=== PATIENT | male | born 1980 | race Caucasian/White ===

== ENCOUNTER 2018-08-24 10:51 | Observation (INO) | payer OTHER, SELFPAY ==
[2018-08-24] VITALS (17 sets, daily range): BP systolic 61–147; BP diastolic 34–78; PULSE 92–109; RESP 16–26; TEMP 35.9–37.5; O2SAT 92–100; BMI 42.5; BMI 41.4
--- NOTE | 2018-08-24 | GALL_PTH ---
PATIENT: MINI VIVAR LOC: MS3 U#:[id number] AGE/SX: 38/M ROOM: OR318 RE08/24/[address]: Dr. Georges Renner MD : 1980 BED: 1 DIS: 08/26/2018 SPEC #: [id number] RECD: 08/25/18 07:45 STATUS: SUSANA REQ #: [id number] DAPHNE: 08/24/18 00:[address]: Chacoh Calles DEPT: SURGICAL PATHOLOGY RECD BY: Shayan Jones ENTERED: 08/25/18 10:11 SP TYPE: GALLBLADDE OTHR DR: MD Dr. Reji Brown DO Dr. Nicholas F Kotsonis, MD No Primary Care Phys Tissues: Gallbladder, NOS Procedures: Surgery Specimen Level III Comments: @ Ordering doctor for SUIII edited from to @ ryan MUSTAFA at 08/25/18 1533 @ Submitting doctor edited from to @ by RGOOD at 08/25/18 1533 HEADER OPERATION: Laparoscopic cholecystectomy with IOC PRE-OP DIAGNOSIS: Acute cholecystitis TISSUE SUBMITTED: Gallbladder and contents MICROSCOPIC DIAGNOSIS Gallbladder and contents: Chronic cholecystitis and cholelithiasis. OXANA:asael 08/26/18 MICROSCOPIC DESCRIPTION Slides are reviewed. GROSS DESCRIPTION Received is one container labeled with the patient's name and designated gallbladder and contents. The specimen consists of a gallbladder measuring 11 cm in length and up to 2 cm in diameter. The external surface is pink-isbell, smooth and glistening for the most part. Focally it is granular, hemorrhagic and contains cautery artifact. The gallbladder contains green-yellow mucoid bile and one irregular black stone measuring 0.7 x 0.5 x 0.5 cm. The mucosa is bile-stained and without any mass lesions. The gallbladder wall measures up to 0.3 cm in thickness. Night Shift Supervisor sections from the gallbladder and the cystic duct are submitted in one cassette. / OXANA:asael TC:3 CPT: 63065
--- NOTE | 2018-08-24 11:00 | EKG12_ITS ---
Test Reason : Blood Pressure : / mmHG Vent. Rate : 105 BPM Atrial Rate : 105 BPM P-R Int : 132 ms QRS Dur : 082 ms QT Int : 328 ms P-R-T Axes : 032 033 026 degrees QTc Int : 433 ms Sinus tachycardia Poor R wave progression Abnormal ECG Confirmed by BLUE ROMERO, YENI ([id number]), order editor LINDA LYNCH ([id number]) on 08/26/2018 11:18:16 AM Referred By: Chacho Calles Confirmed By:YENI MCARTHUR MD
--- NOTE | 2018-08-24 11:00 | CT_ITS ---
STUDY: CT ABDOMEN AND PELVIS WITH CONTRAST REASON FOR EXAM: Male, 38 years old. Sudden onset right-sided pain RADIATION DOSAGE (If Supplied By Facility): CTDIvol = ( 26.34 ) mGy, DLP = ( 1464.25 ) mGycm TECHNIQUE: Transaxial images were obtained from the dome of the diaphragm to the symphysis pubis without oral contrast. 100 ml of Isovue 300 contrast was administered. Sagittal and coronal images were reconstructed. Individualized dose optimization techniques were used for this CT. COMPARISON: None. FINDINGS: The visualized lung bases are unremarkable. The visualized portions of the heart are within normal limits. There is decreased attenuation of the liver consistent with steatosis. There is a small gallstone near the neck of the gallbladder on axial image 74. Normal spleen. Normal pancreas. Normal bilateral adrenal glands. Normal right kidney. Normal left kidney. Normal visualized stomach. Normal small intestine. Normal colon. The appendix is visualized and appears normal. Appendix best seen on coronal recon image 78. Normal abdominal aorta. Normal inferior vena cava. Normal retroperitoneum. Normal urinary bladder. Normal abdominal wall. Normal osseous structures. CT/Abdomen/Pelvis W IV Cont ONLY IMPRESSION: Fatty infiltration of the liver, no discrete lesion 5 mm gallstone near the neck of the gallbladder without gallbladder wall thickening or pericholecystic inflammation No CT evidence of an acute inflammatory process, normal appendix visualized Electronically Signed: Ryan Espinosa MD at 12:20 EST , Service support ,
--- NOTE | 2018-08-24 11:01 | RAD_ITS ---
STUDY: X-RAY CHEST REASON FOR EXAM: Male, 38 years old. Nausea, right-sided abdominal pain TECHNIQUE: Single AP portable view of the chest. COMPARISON: None. FINDINGS: The lungs are clear and expanded. There is no demonstrated pleural abnormality. Normal size heart. Normal mediastinum and fely. Normal visualized pulmonary arteries. Normal visualized aortic arch and descending thoracic aorta. Normal visualized thoracic spine. Normal visualized ribs, clavicles, and shoulders. There is no demonstrated abnormality of the visualized soft tissue structures of the upper abdomen. RAD/Chest 1 View (Portable) IMPRESSION: Normal x-ray examination of the chest. Electronically Signed: Ryan Espinosa MD at 12:38 EST , Service support ,
--- NOTE | 2018-08-24 11:05 | ED.RN ---
PT YELLED OUT IN PAIN. TURNED REDISH BLUE AND UNRESPONSIV FOR APPX [address] HENSLEY AT BEDSIDE. PT BECAME RESPONSIVE AND SHOUTING IN PAIN. BREATHING STABLIZED INDEPENDENTLY. NO FURTHER IMMENENT INTERVENTION AT THIS LENY PER DR HENSLEY.
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
--- NOTE | 2018-08-24 11:15 | ED.RN ---
EMESIS IN CT SCAN. APPX 500CC OR GREATER. PINK FLUID. HAD VERGARA GRAPE JUICE THIS AM. PT REPORTS FELS SME BETTER AFTER EMESIS BUT STILL IN SEVERE PAIN.BP RECYCLED AND DR HENSLEY AWARE
[2018-08-24 11:23] LABS: Absolute Lymphocyte Count 0.78 X10^3/ul (0.83-4.51); Absolute Neutrophil Count 4.7 X10^3/uL (2.0-7.7); Basophil# 0.03 X10^3/uL; Basophil% 0.5 % (0-1); Eosinophil# 0.13 X10^3/uL; Eosinophils% 2.1 % (0-5); Hematocrit 45.4 % (40-54); Hemoglobin 15.8 g/dl (13.0-16.5); Lymphocyte # 0.78 X10^3/ul (4.0); Lymphocyte % 12.9 % (19-41); Mean Corp Hgb Conc 34.8 g/gl (32-36); Mean Corpuscular Hgb 32.1 pg (27.0-32.0); Mean Corpuscular Volume 92.3 fL (80-94); Mean Platelet Vol. 10.2 fl (6.2-12.0); Monocyte# 0.41 X10^3/uL; Monocyte% 6.8 % (0-10); Neutrophil # 4.71 X10^3/uL (2.7-7.7); Neutrophil % 77.5 % (47-70); Platelet Count 203 K/mm3 (150-450); Red Blood Count 4.92 M/mm3 (4.6-6.2); White Blood Count 6.1 K/mm3 (4.4-11.0)
[2018-08-24] MEDS: 0.9% Normal Saline 1,000 ML 1000 ML IV (11:23)
[2018-08-24] MEDS: Ondansetron 4 MG/2 ML Vial IV ×2 (11:24→11:46)
[2018-08-24 11:27] LABS: POSITIVE COUNT NO; POSITIVE DIFFERENTIAL NO; POSITIVE MORPHOLOGY NO
[2018-08-24] MEDS: Morphine 4 MG/ML Syringe IV (11:36)
[2018-08-24] MEDS: Ketorolac 30 MG/ML Syringe IV (11:37)
[2018-08-24 12:22] LABS: AST(SGOT) 43 U/L (15-37); Alanine Aminotransfer ALT/SGPT 74 U/L (16-61); Albumin, Serum 3.8 g/dL (3.2-5.0); Alkaline Phosphatase 46 U/L (45-117); Amylase 33 U/L (25-115); Anion Gap 11 (5-15); BUN 14 mg/dL (7-18); BUN/Creat Ratio 8.9 RATIO (10-20); Bilirubin, Direct 0.12 mg/dL (0.00-0.30); Calcium,Total 7.9 mg/dL (8.5-10.1); Chloride 97 mmol/L (98-107); Creatinine, Serum 1.57 mg/dL (0.70-1.30); EST Glomerular Filtration Rate 53 mL/min (>60); Est Glom Filt Rate - Afr Amer 65 mL/min (>60); Estimated Creatinine Clearance 69.28 ml/min; Globulin 3.5 g/dL (2.2-4.2); Glucose 223 mg/dL (74-106); Lipase 228 U/L (73-393); Potassium 4.1 mmol/L (3.5-5.1); Protein, Total 7.3 g/dL (6.4-8.2); Sodium Level 136 mmol/L (136-145)
[2018-08-24 12:26] LABS: Lactic Acid 2.2 mmol/L (0.4-2.0)
--- NOTE | 2018-08-24 12:27 | ED.RN ---
LACTIC ACID 2.2 CALLED [address] THE LAB. DR HENSLEY AWARE
--- NOTE | 2018-08-24 12:30 | US_ITS ---
STUDY: ABDOMINAL ULTRASOUND - RIGHT UPPER QUADRANT REASON FOR VISIT: Male, 38 years old. Right upper quadrant pain, fever TECHNIQUE: Ultrasound evaluation of the right upper quadrant was performed with real-time and static donovan-scale imaging. TECHNICAL QUALITY: Limited. Examination limited due to a combination of factors including obesity and bowel gas, and patient condition. COMPARISON: None. FINDINGS: Liver: The liver measures 20.6 cm. There is increased echogenicity consistent with fatty infiltration. The bile ducts are within normal limits. There is hepatic color flow. The direction of portal flow is hepatopetal. There is no demonstrated mass lesion. Gallbladder: There is a distended gallbladder at 14.9 cm. The gallbladder wall measures 4.6 mm. There is a positive sonographic Mckinney's sign. There is pericholecystic fluid. There are no gallstones. Common Bile Duct (C.B.D.): The common bile duct measures 8.0 mm. Pancreas: There is nonvisualization of the pancreas. Right Kidney: Normal size of the right kidney. The right kidney measures 12 x 6.7 x 5.4 cm. Normal renal cortex. The right cortex measures 1.8 cm. There is no demonstrated renal mass or cyst. There is no right hydronephrosis. US/Gallbladder IMPRESSION: The gallbladder is distended with wall thickening, pericholecystic fluid and positive Mckinney sign. A stone noted on CT earlier today not seen on this study but other findings are all consistent with cholecystitis. Surgical consultation recommended Hepatomegaly with diffuse fatty infiltration, no discrete lesion. Electronically Signed: Ryan Espinosa MD at 14:14 EST , Service support ,
--- NOTE | 2018-08-24 12:30 | EKG12_ITS ---
Test Reason : Blood Pressure : / mmHG Vent. Rate : 103 BPM Atrial Rate : 103 BPM P-R Int : 128 ms QRS Dur : 080 ms QT Int : 334 ms P-R-T Axes : 037 026 014 degrees QTc Int : 437 ms Sinus tachycardia Otherwise normal ECG Confirmed by JORGE ROMERO, CHARLEEN ([id number]), editor dictionary LINDA LYNCH ([id number]) on 08/30/2018 9:45:49 AM Referred By: Chacho Calles Confirmed By:CHARLEEN PATEL MD
--- NOTE | 2018-08-24 12:42 | PCA ---
NO OLD EKG
[2018-08-24] MEDS: 0.9% Normal Saline 1,000 ML 500 ML IV (13:24)
[2018-08-24] MEDS: fentaNYL 100 MCG/2 ML Ampul 25 MCG IV (13:54)
--- NOTE | 2018-08-24 14:15 | ED.RN ---
PT WAS TRANSFERRED VIA BED TO A.C. AT 1405.
[2018-08-24 14:45] LABS: Bedside Glucose 203 mg/dL (70-110)
--- NOTE | 2018-08-24 14:57 | PCM.HP.STD ---
Problem List (1) Acute cholecystitis Status: Acute History of Present Illness Date of Admission: 08/24/18 Chief Complaint: Right upper quadrant pain The patient is a 38 year old M who is complaining of severe right upper quadrant pain. The patient says the pain started yesterday evening. He says that he went to work this morning and was still having a lot of pain and tried to vomit from his nausea but then he felt a pop in his right upper quadrant and has been severely hurting ever since. He also vomited in CAT scan. He is not having fevers or chills but he has been hypotensive in the emergency room. He has not urinated since coming to the emergency room. Past Medical History Allergies No Known Allergies Allergy (Verified 08/24/18 11:00) Home Medications: Ambulatory Orders Medication Instructions Recorded Betamethasone Dipropionate 1 applic TP DAILY 08/24/18 Fenofibrate 160 mg PO DAILY 08/24/18 Ibuprofen 800 mg PO PRN PRN 08/24/18 Levothyroxine Sodium [Synthroid] 200 mcg PO DAILY 08/24/18 Liothyronine Sodium 50 mcg PO DAILY 08/24/18 Lisinopril 5 mg PO DAILY 08/24/18 Metformin HCl 1,000 mg PO DAILY 08/24/18 Testosterone Cypionate 1 ml IM TH 08/24/18 Surgical History: no surgical history Smoking Status: Never smoker - *Family History Paternal History Items: Unknown Maternal History Items: No pertinent history Review of Systems Constitutional: Reports: Anorexia HEENT: Denies: Difficulty Swallowing Cardiovascular: Denies: Chest Pain Respiratory: Denies: Cough, Shortness of Breath Gastrointestinal: Reports: Abdominal Pain - Severe right upper quadrant pain, Nausea, Vomiting Genitourinary: Denies: Dysuria Musculoskeletal: Denies: Joint Tenderness Skin: Denies: Dryness, Jaundice Neurological: Denies: Headaches Psychiatric: Denies: Anxiety, Depression Hematologic/ Lymphatic: Denies: Adenopathy VTE Information - Inpt Only VTE Present on Admission: No VTE Mechan Device Prophylaxis: SCD's Patient Problems: Active and Suspected Problems Acute cholecystitis (Acute) - Physical Exam General: Alert, Oriented x3, Cooperative HEENT: Atraumatic, PERRLA, EOMI Neck: Supple Lungs: Normal air movement Cardiovascular: Regular Rhythm, Tachycardic Abdomen: Soft, Non-Distended, Tender Extremities: No clubbing Skin: No rashes Musculoskeletal: No Muscle Wasting Neurological: Cranial nerves II-XII grossly intact Psych/Mental Status: Normal Affect Vital Signs Temp Pulse Resp BP Pulse Ox 98.8 F 100 18 95/58 L 98 08/24/18 14:16 08/24/18 14:16 08/24/18 14:16 08/24/18 14:16 08/24/18 14:16 Oxygen Flow Rate (L/min) 2 Oxygen Delivery Method Nasal Cannula Weight: 297 lb Body Mass Index (BMI) 41.4 Laboratory Tests Past 24 Hrs 08/24/18 08/24/18 08/24/18 11:12 11:12 11:24 WBC 6.1 RBC 4.92 Hgb 15.8 Hct 45.4 MCV 92.3 MCH 32.1 H MCHC 34.8 RDW 14.0 RDW Differential 46.0 H Plt Count 203 MPV 10.2 Immature Gran % (Auto) 0.200 Neut % (Auto) 77.5 H Lymph % (Auto) 12.9 L Zapata % (Auto) 6.8 Eos % (Auto) 2.1 Baso % (Auto) 0.5 Absolute Neuts (auto) 4.7 Absolute Lymphs (auto) 0.78 L Total Counted Not Reportable Sodium 136 Potassium 4.1 Chloride 97 L Carbon Dioxide 28.0 Anion Gap 11 BUN 14 Creatinine 1.57 H Estim Creat Clear Calc 69.28 Est GFR (MDRD) Af Amer 65 Est GFR (MDRD) Non-Af 53 L BUN/Creatinine Ratio 8.9 L Glucose 223 H Lactic Acid 2.2 H Calcium 7.9 L Total Bilirubin 0.90 Direct Bilirubin 0.12 AST 43 H ALT 74 H Alkaline Phosphatase 46 Troponin I < 0.015 Total Protein 7.3 Albumin 3.8 Globulin 3.5 Amylase 33 Lipase 228 POC Glucose 08/24/18 14:32 POC Glucose 203 H Clinical Impression(s) from Imaging Studies Abdomen/Pelvis CT 08/24/18 11:00 IMPRESSION: Fatty infiltration of the liver, no discrete lesion 5 mm gallstone near the neck of the gallbladder without gallbladder wall thickening or pericholecystic inflammation No CT evidence of an acute inflammatory process, normal appendix visualized Electronically Signed: Ryan Espinosa MD at 12:20 EST , Service support , Chest X-Ray 08/24/18 11:01 IMPRESSION: Normal x-ray examination of the chest. Electronically Signed: Ryan Espinosa MD at 12:38 EST , Service support , Gallbladder Ultrasound 08/24/18 12:30 IMPRESSION: The gallbladder is distended with wall thickening, pericholecystic fluid and positive Mckinney sign. A stone noted on CT earlier today not seen on this study but other findings are all consistent with cholecystitis. Surgical consultation recommended Hepatomegaly with diffuse fatty infiltration, no discrete lesion. Electronically Signed: Ryan Espinosa MD at 14:14 EST , Service support , Assessment/Plan All Active Problems Acute cholecystitis (Acute) 38-year-old male with acute cholecystitis 1. The patient has been hypotensive in the emergency room. His white count is normal. He complains of severe right upper quadrant pain. He has a positive Mckinney sign. On CT scan he has a large stone in the neck of the gallbladder. On ultrasound he has thickening of gallbladder with pericholecystic fluid. These are all consistent with acute cholecystitis. 2. I have asked the emergency room to run his fluids wide open and start Zosyn. 3. I discussed the procedure in detail with the patient. I discussed the risks, benefits, and alternatives of the procedure. I discussed the risks including but not limited to bleeding, infection, injury to surrounding organs such as the liver, bile duct, bowels. I did discuss the possibility of having to convert to an open procedure as well as the possibility that if any injuries occurred this may necessitate further surgery at a tertiary care center. Patient agrees to proceeding with surgery today. Chacho Calles MD Pager: [facility] [address] [place] [address], [address] [place] [address] Office:
--- NOTE | 2018-08-24 15:02 | HP.PCM_ITS ---
Problem List (1) Acute cholecystitis Status: Acute History of Present Illness Date of Admission: 08/24/18 Chief Complaint: Right upper quadrant pain The patient is a 38 year old M who is complaining of severe right upper quadrant pain. The patient says the pain started yesterday evening. He says that he went to work this morning and was still having a lot of pain and tried to vomit from his nausea but then he felt a pop in his right upper quadrant and has been severely hurting ever since. He also vomited in CAT scan. He is not having fevers or chills but he has been hypotensive in the emergency room. He has not urinated since coming to the emergency room. Past Medical History Allergies No Known Allergies Allergy (Verified 08/24/18 11:00) Home Medications: Ambulatory Orders Medication Instructions Recorded Betamethasone Dipropionate 1 applic TP DAILY 08/24/18 Fenofibrate 160 mg PO DAILY 08/24/18 Ibuprofen 800 mg PO PRN PRN 08/24/18 Levothyroxine Sodium [Synthroid] 200 mcg PO DAILY 08/24/18 Liothyronine Sodium 50 mcg PO DAILY 08/24/18 Lisinopril 5 mg PO DAILY 08/24/18 Metformin HCl 1,000 mg PO DAILY 08/24/18 Testosterone Cypionate 1 ml IM TH 08/24/18 Surgical History: no surgical history Smoking Status: Never smoker - *Family History Paternal History Items: Unknown Maternal History Items: No pertinent history Review of Systems Constitutional: Reports: Anorexia HEENT: Denies: Difficulty Swallowing Cardiovascular: Denies: Chest Pain Respiratory: Denies: Cough, Shortness of Breath Gastrointestinal: Reports: Abdominal Pain - Severe right upper quadrant pain, Nausea, Vomiting Genitourinary: Denies: Dysuria Musculoskeletal: Denies: Joint Tenderness Skin: Denies: Dryness, Jaundice Neurological: Denies: Headaches Psychiatric: Denies: Anxiety, Depression Hematologic/ Lymphatic: Denies: Adenopathy VTE Information - Inpt Only VTE Present on Admission: No VTE Mechan Device Prophylaxis: SCD's Patient Problems: Active and Suspected Problems Acute cholecystitis (Acute) - Physical Exam General: Alert, Oriented x3, Cooperative HEENT: Atraumatic, PERRLA, EOMI Neck: Supple Lungs: Normal air movement Cardiovascular: Regular Rhythm, Tachycardic Abdomen: Soft, Non-Distended, Tender Extremities: No clubbing Skin: No rashes Musculoskeletal: No Muscle Wasting Neurological: Cranial nerves II-XII grossly intact Psych/Mental Status: Normal Affect Vital Signs Temp Pulse Resp BP Pulse Ox 98.8 F 100 18 95/58 L 98 08/24/18 14:16 08/24/18 14:16 08/24/18 14:16 08/24/18 14:16 08/24/18 14:16 Oxygen Flow Rate (L/min) 2 Oxygen Delivery Method Nasal Cannula Weight: 297 lb Body Mass Index (BMI) 41.4 Laboratory Tests Past 24 Hrs 08/24/18 08/24/18 08/24/18 11:12 11:12 11:24 WBC 6.1 RBC 4.92 Hgb 15.8 Hct 45.4 MCV 92.3 MCH 32.1 H MCHC 34.8 RDW 14.0 RDW Differential 46.0 H Plt Count 203 MPV 10.2 Immature Gran % (Auto) 0.200 Neut % (Auto) 77.5 H Lymph % (Auto) 12.9 L Ross % (Auto) 6.8 Eos % (Auto) 2.1 Baso % (Auto) 0.5 Absolute Neuts (auto) 4.7 Absolute Lymphs (auto) 0.78 L Total Counted Not Reportable Sodium 136 Potassium 4.1 Chloride 97 L Carbon Dioxide 28.0 Anion Gap 11 BUN 14 Creatinine 1.57 H Estim Creat Clear Calc 69.28 Est GFR (MDRD) Af Amer 65 Est GFR (MDRD) Non-Af 53 L BUN/Creatinine Ratio 8.9 L Glucose 223 H Lactic Acid 2.2 H Calcium 7.9 L Total Bilirubin 0.90 Direct Bilirubin 0.12 AST 43 H ALT 74 H Alkaline Phosphatase 46 Troponin I < 0.015 Total Protein 7.3 Albumin 3.8 Globulin 3.5 Amylase 33 Lipase 228 POC Glucose 08/24/18 14:32 POC Glucose 203 H Clinical Impression(s) from Imaging Studies Abdomen/Pelvis CT 08/24/18 11:00 IMPRESSION: Fatty infiltration of the liver, no discrete lesion 5 mm gallstone near the neck of the gallbladder without gallbladder wall thickening or pericholecystic inflammation No CT evidence of an acute inflammatory process, normal appendix visualized Electronically Signed: Ryan Espinosa MD at 12:20 EST , Service support , Chest X-Ray 08/24/18 11:01 IMPRESSION: Normal x-ray examination of the chest. Electronically Signed: Ryan Espinosa MD at 12:38 EST , Service support , Gallbladder Ultrasound 08/24/18 12:30 IMPRESSION: The gallbladder is distended with wall thickening, pericholecystic fluid and positive Mckinney sign. A stone noted on CT earlier today not seen on this study but other findings are all consistent with cholecystitis. Surgical consultation recommended Hepatomegaly with diffuse fatty infiltration, no discrete lesion. Electronically Signed: Ryan Espinosa MD at 14:14 EST , Service support , Assessment/Plan All Active Problems Acute cholecystitis (Acute) 38-year-old male with acute cholecystitis 1. The patient has been hypotensive in the emergency room. His white count is normal. He complains of severe right upper quadrant pain. He has a positive Mckinney sign. On CT scan he has a large stone in the neck of the gallbladder. On ultrasound he has thickening of gallbladder with pericholecystic fluid. These are all consistent with acute cholecystitis. 2. I have asked the emergency room to run his fluids wide open and start Zosyn. 3. I discussed the procedure in detail with the patient. I discussed the risks, benefits, and alternatives of the procedure. I discussed the risks including but not limited to bleeding, infection, injury to surrounding organs such as the liver, bile duct, bowels. I did discuss the possibility of having to convert to an open procedure as well as the possibility that if any injuries occurred this may necessitate further surgery at a tertiary care center. Patient agrees to proceeding with surgery today. Chacho Calles MD Pager: [facility] [address] [place] [address], [address] [place] [address] Office:
[2018-08-24 15:25] LABS: Reflex Lactate? Y
--- NOTE | 2018-08-24 16:25 | RAD_ITS ---
CLINICAL HISTORY: Male, 38 years old. Cholecystitis PROCEDURE: CHOLANGIOGRAM - intraoperative FLUOROSCOPY TIME (if supplied): (Less than 1) minutes Placement of the catheter and the procedure were performed by: Dr. Calles Fluoroscopy was provided by Ambreen Fuller, who was present in the room time of the procedure. TECHNIQUE: (All elements of maximal sterile barrier technique followed, including US elements as applicable) After gallbladder was removed, the cystic duct remnant was cannulized. Contrast was injected into the biliary tree in a retrograde manner. There is normal distention of the biliary tree, no evidence of dilatation of the bile ducts is noted. There is free flow of contrast into the duodenum. No demonstrated retained stone stricture or mass. No extravasation of contrast RAD/Cholangiogram/ O R,Initial IMPRESSION: Normal intraoperative cholangiogram Electronically Signed: Ryan Espinosa MD at 20:28 EST , Service support ,
[2018-08-24 16:46] LABS: Lactic Acid 2.5 mmol/L (0.4-2.0)
[2018-08-24] MEDS: Bupivacaine 0.25% 30 ML Vial (17:01)
--- NOTE | 2018-08-24 17:11 | PCM.OPRPT ---
Problem List (1) Acute cholecystitis Status: Acute Report of Operation Date of Procedure: 08/24/18 Pre-Operative Diagnosis: Acute cholecystitis Post-Operative Diagnosis: Same Surgery/Procedure Performed:: Laparoscopic cholecystectomy with cholangiogram Specimen's removed: Gallbladder and contents Description of Procedure: After obtaining informed consent patient was brought back to the operating room. General anesthesia was induced. The abdomen was prepped and draped in usual sterile fashion. Using Visiport technique and incision was made in the right upper quadrant and a 5 mm trocar was advanced into the abdomen under direct visualization. The abdomen was then insufflated to 15 mmHg and inspected. There were no injuries from entry into the abdomen. Patient had dense adhesions at his former incision site. There was no inflammation in the gallbladder area or in the rest of the abdomen. Next a further lateral right upper quadrant incision was made a 5 mm port was placed. Adhesions to the anterior abdominal wall in a segment of the midline incision were taken down sharply. Next an incision was made superior to the umbilicus and a Walsh trocar was placed through this into the abdomen. The balloon was insufflated. Next a subxiphoid port was placed under direct visualization. Next the gallbladder was elevated and retracted toward the right shoulder. The peritoneum appeared slightly thickened but there was not a lot of inflammation around the gallbladder. The peritoneum was stripped from the gallbladder. The infundibulum was located and retracted laterally. Next the triangle of Calot was dissected and the cystic duct and cystic artery were identified. Cholangiograms were performed. The Ogden clamp was used to clamp across the infundibulum and the catheter needle was inserted into the gallbladder. Under fluoroscopy contrast was instilled into the gallbladder and the common duct, cystic duct as well as proximal hepatic ducts were identified. There was good filling of the duodenum. There were no filling defects noted in the common bile duct. The clamp was removed as well as the needle and the infundibulum was grasped once more. Three hemolock clips were placed across the cystic duct. The cystic duct was then divided leaving 2 clips on the stump. The cystic artery was clipped and divided in the same fashion. The hook cautery was then used to take the gallbladder off of the gallbladder bed. There was some spillage of bile during the case. Hemostasis was obtained. Gallbladder fossa was irrigated and no active bleeding or bile leakage was noted. Next the camera switched to a 5 mm camera and introduced in the subxiphoid port. An Endopouch bag was placed through the umbilical port and the gallbladder was placed into it. The gallbladder was then removed through the umbilical incision. The camera was then reinserted through the umbilical port. The gallbladder fossa was inspected once more and noted to be hemostatic with no leaking bile. The abdomen was suctioned dry. The abdomen was inspected once more the appendix appeared normal. Next using a Yuriy Kasper needle the umbilical port was closed with a [id number] Vicryl suture. The 5 mm ports were removed under direct visualization. The umbilical port site was irrigated local anesthetic was administered to all the incisions. All the incisions were closed with interrupted subcuticular 4-0 Monocryl sutures followed by Steri-Strips and dressings. The patient was awoken and taken to PACU in stable condition. - Admit VTE Documentation VTE Mechan Device Prophylaxis: SCD's
[2018-08-24] MEDS: Insulin Lispro 100 UNIT/ML INSULN.PEN SC ×2 (17:50→21:02)
--- NOTE | 2018-08-24 17:53 | PN_ITS ---
<Faith Ponce - Last Filed: 08/24/18 18:23> Patient Problems: Active and Suspected Problems Acute cholecystitis (Acute) Subjective: Patient seen and examined, in PACU. S/P laparoscopic cholecystectomy with cholangiogram. Comfortable at this time, denies significant pain. Denies nausea, vomiting. Denies fever, chills. - Physical Exam General: Alert, Oriented x3, Cooperative HEENT: Atraumatic, PERRLA, EOMI, Normocephalic Oral: Dry Mucosa Neck: Supple, No JVD, Negative Carotid Bruits Lungs: Clear to auscultation, Normal air movement Cardiovascular: Regular rate, Regular Rhythm, Normal S1, Normal S2, No murmurs Abdomen: Bowel Sounds Present, Soft, Non-Distended, Obese, Tender Extremities: No clubbing, No cyanosis, No edema, Capillary Refill Less than 3 Seconds Skin: No rashes, No breakdown Musculoskeletal: No Tenderness to Palpation of Joints or Extremities Neurological: Cranial nerves II-XII grossly intact, Neuro grossly intact Psych/Mental Status: Normal Affect, Appropriate Vital Signs Temp Pulse Resp BP Pulse Ox 97.8 F 100 16 99/70 94 08/24/18 17:32 08/24/18 17:45 08/24/18 17:45 08/24/18 17:45 08/24/18 17:45 Oxygen Flow Rate (L/min) 4 Oxygen Delivery Method Nasal Cannula Weight: 297 lb Body Mass Index (BMI) 41.4 Laboratory Tests Past 24 Hrs 08/24/18 08/24/18 08/24/18 11:12 11:12 11:24 WBC 6.1 RBC 4.92 Hgb 15.8 Hct 45.4 MCV 92.3 MCH 32.1 H MCHC 34.8 RDW 14.0 RDW Differential 46.0 H Plt Count 203 MPV 10.2 Immature Gran % (Auto) 0.200 Neut % (Auto) 77.5 H Lymph % (Auto) 12.9 L [place] % (Auto) 6.8 Eos % (Auto) 2.1 Baso % (Auto) 0.5 Absolute Neuts (auto) 4.7 Absolute Lymphs (auto) 0.78 L Total Counted Not Reportable Sodium 136 Potassium 4.1 Chloride 97 L Carbon Dioxide 28.0 Anion Gap 11 BUN 14 Creatinine 1.57 H Estim Creat Clear Calc 69.28 Est GFR (MDRD) Af Amer 65 Est GFR (MDRD) Non-Af 53 L BUN/Creatinine Ratio 8.9 L Glucose 223 H Lactic Acid 2.2 H Calcium 7.9 L Total Bilirubin 0.90 Direct Bilirubin 0.12 AST 43 H ALT 74 H Alkaline Phosphatase 46 Troponin I < 0.015 Total Protein 7.3 Albumin 3.8 Globulin 3.5 Amylase 33 Lipase 228 08/24/18 16:11 WBC RBC Hgb Hct MCV MCH MCHC RDW RDW Differential Plt Count MPV Immature Gran % (Auto) Neut % (Auto) Lymph % (Auto) [place] % (Auto) Eos % (Auto) Baso % (Auto) Absolute Neuts (auto) Absolute Lymphs (auto) Total Counted Sodium Potassium Chloride Carbon Dioxide Anion Gap BUN Creatinine Estim Creat Clear Calc Est GFR (MDRD) Af Amer Est GFR (MDRD) Non-Af BUN/Creatinine Ratio Glucose Lactic Acid 2.5 H Calcium Total Bilirubin Direct Bilirubin AST ALT Alkaline Phosphatase Troponin I Total Protein Albumin Globulin Amylase Lipase POC Glucose 08/24/18 14:32 POC Glucose 203 H Medical Necessity - Tobacco Use Smoking Status: Never smoker Assessment/Plan All Active Problems Acute cholecystitis (Acute) 1. Acute cholecystitis status post laparoscopic cholecystectomy with cholangiogram- PRN pain regimen. Clear liquid diet. Started on IV zosyn empirically per surgery. Lap sites intact. 2. Lactic acidosis-suspect reactive. No evidence of sepsis. No leukocytosis or fever. Repeat lactic acid. 3. Suspected acute kidney injury-no previous labs for comparison. Creatinine admission 1.5. IV fluids. Trend BMP. 4. Hypotension-suspect secondary to volume depletion. Improving. Continue IV fluids. 5. Type 2 diabetes mellitus-hold metformin regimen. Accu-Cheks ACHS with sliding scale insulin. 6. Hypertension-hold lisinopril regimen given hypotension and PRATIK. 7. Hyperlipidemia-continue fenofibrate. 8. Hypothyroidism-continue home Synthroid/liothyronine regimen. 9. Obesity-encouraged diet lifestyle modifications. 10. Gout- previously on Uloric which he reports he is no longer taking due to cost. DVT prophylaxis- SCDs This patient was seen by ERICA Zhao under the supervision of Dr. Kim. <Reji Kim - Last Filed: 08/24/18 20:15> Subjective: Feeling better. Had retching, then felt a pop in his RUQ, then had excruciating abdominal pain. Underwent lap tristin with a grossly unimpressive gall bladder. Started on Zosyn. Had lactic acidosis pre and post op, despite aggressive IV hydration. - Physical Exam General: Alert, Cooperative, No apparent distress HEENT: Atraumatic, Normocephalic Neck: No Nodes, Thyroid Normal Size and Texture Lungs: Clear to auscultation, No rhonchi, No wheeze, Diminished Cardiovascular: Regular rate, Regular Rhythm, Normal S1, Normal S2, No murmurs Abdomen: Non-Distended, Hypoactive Bowel Sounds, Obese, Tender Extremities: No clubbing, No edema Skin: No rashes, No breakdown Musculoskeletal: No Tenderness to Palpation of Joints or Extremities, No Muscle Wasting Neurological: Cranial nerves II-XII grossly intact, Neuro grossly intact Psych/Mental Status: Normal Affect, Appropriate Vital Signs Temp Pulse Resp BP Pulse Ox 36.5 C L 92 18 110/72 94 08/24/18 18:36 08/24/18 18:36 08/24/18 18:36 08/24/18 18:36 08/24/18 18:36 Oxygen Flow Rate (L/min) 2 Oxygen Delivery Method Nasal Cannula Weight: 134.717 kg Body Mass Index (BMI) 41.4 Finger Stick Blood Glucose 256 Intake and Output for Last 24 Hours 08/22/18 08/23/18 08/24/18 23:59 23:59 23:59 Intake Total 3300 / 3300 Balance 3300 / 3300 Laboratory Tests Past 24 Hrs 08/24/18 08/24/18 08/24/18 11:12 11:12 11:24 WBC 6.1 RBC 4.92 Hgb 15.8 Hct 45.4 MCV 92.3 MCH 32.1 H MCHC 34.8 RDW 14.0 RDW Differential 46.0 H Plt Count 203 MPV 10.2 Immature Gran % (Auto) 0.200 Neut % (Auto) 77.5 H Lymph % (Auto) 12.9 L [place] % (Auto) 6.8 Eos % (Auto) 2.1 Baso % (Auto) 0.5 Absolute Neuts (auto) 4.7 Absolute Lymphs (auto) 0.78 L Total Counted Not Reportable Differential Comment Sodium 136 Potassium 4.1 Chloride 97 L Carbon Dioxide 28.0 Anion Gap 11 BUN 14 Creatinine 1.57 H Estim Creat Clear Calc 69.28 Est GFR (MDRD) Af Amer 65 Est GFR (MDRD) Non-Af 53 L BUN/Creatinine Ratio 8.9 L Glucose 223 H Lactic Acid 2.2 H Calcium 7.9 L Total Bilirubin 0.90 Direct Bilirubin 0.12 AST 43 H ALT 74 H Alkaline Phosphatase 46 Total Creatine Kinase Troponin I < 0.015 Total Protein 7.3 Albumin 3.8 Globulin 3.5 Amylase 33 Lipase 228 08/24/18 08/24/18 08/24/18 16:11 17:50 17:50 WBC 6.4 RBC 4.48 L Hgb 14.1 Hct 42.6 MCV 95.1 H MCH 31.5 MCHC 33.1 RDW 14.5 RDW Differential 48.7 H Plt Count 152 MPV 10.1 Immature Gran % (Auto) 0.300 Neut % (Auto) 87.4 H Lymph % (Auto) 7.9 L [place] % (Auto) 3.1 Eos % (Auto) 0.8 Baso % (Auto) 0.5 Absolute Neuts (auto) 5.6 Absolute Lymphs (auto) 0.51 L Total Counted Not Reportable Differential Comment SCANNED Sodium 132 L Potassium 6.3 H* Chloride 105 Carbon Dioxide 19.0 L Anion Gap 8 BUN 17 Creatinine 1.45 H Estim Creat Clear Calc 75.01 Est GFR (MDRD) Af Amer 71 Est GFR (MDRD) Non-Af 59 L BUN/Creatinine Ratio 11.7 Glucose 265 H Lactic Acid 2.5 H Calcium 6.6 L Total Bilirubin Direct Bilirubin AST ALT Alkaline Phosphatase Total Creatine Kinase 765 H Troponin I Total Protein Albumin Globulin Amylase Lipase 08/24/18 18:55 WBC RBC Hgb Hct MCV MCH MCHC RDW RDW Differential Plt Count MPV Immature Gran % (Auto) Neut % (Auto) Lymph % (Auto) [place] % (Auto) Eos % (Auto) Baso % (Auto) Absolute Neuts (auto) Absolute Lymphs (auto) Total Counted Differential Comment Sodium 132 L Potassium 6.5 H* Chloride 104 Carbon Dioxide 20.0 L Anion Gap 8 BUN 19 H Creatinine 1.48 H Estim Creat Clear Calc 73.49 Est GFR (MDRD) Af Amer 69 Est GFR (MDRD) Non-Af 57 L BUN/Creatinine Ratio 12.8 Glucose 286 H Lactic Acid Calcium 6.7 L Total Bilirubin Direct Bilirubin AST ALT Alkaline Phosphatase Total Creatine Kinase Troponin I Total Protein Albumin Globulin Amylase Lipase POC Glucose 08/24/18 14:32 POC Glucose 203 H Assessment/Plan Patient seen and examined independently. Data reviewed. I agree with the above note by the nurse practitioner. 1. Lactic acidosis Suspect may be reactive as well but also probably comp gated by his transient hypotension and his concomitant use of metformin. Agree with continuing to hold metformin. I am not concerned about any ominous disease that may acutely worsen the patient has clinically he appears to be improved. Will monitor and follow the lactate. We will check a UA and urine culture. Check blood culture 2. Hyperkalemia Level at 6.5 discussed with lab and they stated that it was not hemolyzed, though the one before hand was moderately hemolyzed and was read at 6.3 Unclear etiology at this time Will continue with aggressive IV hydration Will give Kayexalate Reevaluate Telemetry monitoring until the potassium normalizes 3. Rhabdomyolysis Is possible the patient had a muscle tear or strain that led to this patient's severe abdominal pain IV fluids Monitor CPKs 4. Acute cholecystitis Status post lap scopic cholecystectomy Management per general surgery On Zosyn 5. Hypotension Resolved Suspect vasovagal 6.Diabetes mellitus type 2 Uncontrolled Metformin held due to the lactic acidosis On sliding scale insulin Consider basal coverage depending on patient's clinical course and blood sugars 7. Hypothyroidism On Cytomel and Synthroid Check a TSH I doubt any acute thyroid crisis 8. DVT proph: SCDs Discussed with the patient's at bedside. Expressed that overall picture is not clear but I expressed that I feel that he will remain stable and likely improve during his hospitalization. I explained that he may have had a viral illness or acute cholecystitis that led to his retching and possible abdominal muscle tear or strain that led to severe abdominal pain. His hypertension may have been vasovagal. Code Visit Inpatient E&M: 72060 Subs Hosp L3
[2018-08-24 18:09] LABS: Absolute Lymphocyte Count 0.51 X10^3/ul (0.83-4.51); Absolute Neutrophil Count 5.6 X10^3/uL (2.0-7.7); Basophil# 0.03 X10^3/uL; Basophil% 0.5 % (0-1); Eosinophil# 0.05 X10^3/uL; Eosinophils% 0.8 % (0-5); Hematocrit 42.6 % (40-54); Hemoglobin 14.1 g/dl (13.0-16.5); Lymphocyte # 0.51 X10^3/ul (4.0); Lymphocyte % 7.9 % (19-41); Mean Corp Hgb Conc 33.1 g/gl (32-36); Mean Corpuscular Hgb 31.5 pg (27.0-32.0); Mean Corpuscular Volume 95.1 fL (80-94); Mean Platelet Vol. 10.1 fl (6.2-12.0); Monocyte% 3.1 % (0-10); Neutrophil # 5.61 X10^3/uL (2.7-7.7); Neutrophil % 87.4 % (47-70); Platelet Count 152 K/mm3 (150-450); RBC Distribution Width CV 14.5 % (11.6-14.6); RBC Distribution Width SD 48.7 fl (35.1-43.9); Red Blood Count 4.48 M/mm3 (4.6-6.2); White Blood Count 6.4 K/mm3 (4.4-11.0)
[2018-08-24 18:12] LABS: Differential Indicated SCAN CRITERIA MET; POSITIVE COUNT NO; POSITIVE DIFFERENTIAL YES; POSITIVE MORPHOLOGY NO
[2018-08-24 18:25] LABS: Anion Gap 8 (5-15); BUN 17 mg/dL (7-18); BUN/Creat Ratio 11.7 RATIO (10-20); CPK Total, Creatine Kinase 765 U/L (39-308); Calcium,Total 6.6 mg/dL (8.5-10.1); Chloride 105 mmol/L (98-107); Creatinine, Serum 1.45 mg/dL (0.70-1.30); EST Glomerular Filtration Rate 59 mL/min (>60); Est Glom Filt Rate - Afr Amer 71 mL/min (>60); Estimated Creatinine Clearance 75.01 ml/min; Glucose 265 mg/dL (74-106); Potassium 6.3 mmol/L (3.5-5.1); Sodium Level 132 mmol/L (136-145)
[2018-08-24 18:33] LABS: Differential Comment SCANNED
[2018-08-24] MEDS: Morphine 2 MG/ML Syringe IV ×2 (18:33→23:46)
[2018-08-24] MEDS: BENZOCAINE/MENTHOL 1 LOZENGE MUCOUS MEM ×2 (18:55→20:57)
[2018-08-24] MEDS: 0.9% Normal Saline 1,000 ML 150 ML IV (19:26)
[2018-08-24 19:33] LABS: Anion Gap 8 (5-15); BUN 19 mg/dL (7-18); BUN/Creat Ratio 12.8 RATIO (10-20); Calcium,Total 6.7 mg/dL (8.5-10.1); Chloride 104 mmol/L (98-107); Creatinine, Serum 1.48 mg/dL (0.70-1.30); EST Glomerular Filtration Rate 57 mL/min (>60); Est Glom Filt Rate - Afr Amer 69 mL/min (>60); Estimated Creatinine Clearance 73.49 ml/min; Glucose 286 mg/dL (74-106); Potassium 6.5 mmol/L (3.5-5.1); Sodium Level 132 mmol/L (136-145)
[2018-08-24 20:14] LABS: Bacteria 0 SEEN /hpf (None Seen); Mucous, Urine 0 SEEN /hpf (<or=2+); Squamous Epithelial Cells - UA 0 SEEN /hpf (0-5); White Blood Cells 0 SEEN /hpf (0-5)
[2018-08-24 20:28] LABS: Color, Urine Yellow (Yellow); Glucose, Dipstick 100 mg/dl (Normal); Ketone-Dipstick Negative (Negative); Leukocyte Esterase-Dipstick 25 /ul (Negative); Nitrite-Dipstick Negative (Negative); Occult Blood-Urine 150 /ul (Negative); Protein-Dipstick 30 mg/dl (Negative); Urine Bilirubin Dipstick Negative (Negative); Urine Clarity Clear (Clear); Urine Urobilinogen Normal (Normal)
[2018-08-24 20:33] LABS: Red Blood Cells-Urine 0-5 SEEN /hpf (0-5)
[2018-08-24 20:47] LABS: Lactic Acid 2.1 mmol/L (0.4-2.0)
[2018-08-24] MEDS: Docusate Sodium 100 MG Capsule PO (20:57)
[2018-08-24] MEDS: Sodium Polystyrene Sulfonate 15 GM/60 ML UDC PO (21:04)
[2018-08-24] MEDS: Piperacil/Tazobactam 3.375 GM/50 ML ML IV (21:04)
[2018-08-24 22:53] LABS: Bedside Glucose 263 mg/dL (70-110)
[2018-08-25] VITALS (10 sets, daily range): BP systolic 137–154; BP diastolic 72–88; PULSE 104–121; RESP 18–20; TEMP 36.8–38; O2SAT 92–97
[2018-08-25 00:16] LABS: Reflex Lactate? Y
[2018-08-25 01:27] LABS: CPK Total, Creatine Kinase 975 U/L (39-308)
[2018-08-25 01:32] LABS: Lactic Acid 2.8 mmol/L (0.4-2.0)
[2018-08-25] MEDS: Morphine 2 MG/ML Syringe IV ×3 (02:10→15:55)
[2018-08-25] MEDS: 0.9% Normal Saline 1,000 ML 150 ML IV ×4 (02:10→22:28)
[2018-08-25] MEDS: oxyCODONE 5 MG Tablet PO ×5 (04:18→22:21)
[2018-08-25] MEDS: Piperacil/Tazobactam 3.375 GM/50 ML ML IV (06:02)
[2018-08-25] MEDS: Levothyroxine 100 MCG Tablet 200 MCG PO (06:02)
[2018-08-25] MEDS: Insulin Lispro 100 UNIT/ML INSULN.PEN SC ×4 (06:34→22:20)
[2018-08-25 06:43] LABS: Absolute Lymphocyte Count 0.67 X10^3/ul (0.83-4.51); Absolute Neutrophil Count 5.2 X10^3/uL (2.0-7.7); Basophil# 0.01 X10^3/uL; Basophil% 0.2 % (0-1); Eosinophil# 0.01 X10^3/uL; Eosinophils% 0.2 % (0-5); Hematocrit 38.5 % (40-54); Lymphocyte # 0.67 X10^3/ul (4.0); Lymphocyte % 10.3 % (19-41); Mean Corp Hgb Conc 33.8 g/gl (32-36); Mean Corpuscular Hgb 31.8 pg (27.0-32.0); Mean Corpuscular Volume 94.1 fL (80-94); Mean Platelet Vol. 10.3 fl (6.2-12.0); Monocyte% 9.2 % (0-10); Neutrophil # 5.19 X10^3/uL (2.7-7.7); Neutrophil % 79.9 % (47-70); Platelet Count 167 K/mm3 (150-450); RBC Distribution Width CV 14.6 % (11.6-14.6); RBC Distribution Width SD 49.5 fl (35.1-43.9); Red Blood Count 4.09 M/mm3 (4.6-6.2); White Blood Count 6.5 K/mm3 (4.4-11.0)
[2018-08-25 06:49] LABS: POSITIVE COUNT NO; POSITIVE DIFFERENTIAL NO; POSITIVE MORPHOLOGY NO
[2018-08-25 07:06] LABS: Bedside Glucose 191 mg/dL (70-110)
[2018-08-25 07:14] LABS: AST(SGOT) 59 U/L (15-37); Alanine Aminotransfer ALT/SGPT 78 U/L (16-61); Albumin, Serum 3.2 g/dL (3.2-5.0); Alkaline Phosphatase 33 U/L (45-117); Anion Gap 10 (5-15); BUN 10 mg/dL (7-18); BUN/Creat Ratio 9.8 RATIO (10-20); Calcium,Total 7.2 mg/dL (8.5-10.1); Chloride 103 mmol/L (98-107); Creatinine, Serum 1.02 mg/dL (0.70-1.30); EST Glomerular Filtration Rate 88 mL/min (>60); Est Glom Filt Rate - Afr Amer 106 mL/min (>60); Estimated Creatinine Clearance 106.63 ml/min; Globulin 3.1 g/dL (2.2-4.2); Glucose 195 mg/dL (74-106); Potassium 3.6 mmol/L (3.5-5.1); Protein, Total 6.3 g/dL (6.4-8.2); Sodium Level 138 mmol/L (136-145)
[2018-08-25 07:31] LABS: Bedside Glucose 256 mg/dL (70-110)
[2018-08-25 07:31] LABS: Bedside Glucose 299 mg/dL (70-110)
--- NOTE | 2018-08-25 08:38 | PCM.PN.SRG ---
Patient Problems: Active and Suspected Problems Acute cholecystitis (Acute) Subjective: Patient still complaining of severe right upper quadrant pain. He did have a Avina placed overnight and he is now having clear yellow urine. He says he is passing flatus with no nausea or vomiting. - Physical Exam General: Alert, Oriented x3, Cooperative Neck: No JVD Abdomen: Soft, Non-Distended, Obese, Tender Vital Signs Temp Pulse Resp BP Pulse Ox 98.2 F 105 H 18 149/87 H 93 08/25/18 08:23 08/25/18 08:23 08/25/18 08:23 08/25/18 08:23 08/25/18 08:23 Oxygen Flow Rate (L/min) 2 Oxygen Delivery Method Nasal Cannula Weight: 297 lb Body Mass Index (BMI) 41.4 Finger Stick Blood Glucose 256 Intake and Output for Last 24 Hours 08/23/18 08/24/18 08/25/18 23:59 23:59 23:59 Intake Total 3300 / 3300 3936 / 3936 Output Total 3250 / 3250 Balance 3300 / 3300 686 / 686 Laboratory Tests Past 24 Hrs 08/24/18 08/24/18 08/24/18 11:12 11:12 11:24 WBC 6.1 RBC 4.92 Hgb 15.8 Hct 45.4 MCV 92.3 MCH 32.1 H MCHC 34.8 RDW 14.0 RDW Differential 46.0 H Plt Count 203 MPV 10.2 Immature Gran % (Auto) 0.200 Neut % (Auto) 77.5 H Lymph % (Auto) 12.9 L [place] % (Auto) 6.8 Eos % (Auto) 2.1 Baso % (Auto) 0.5 Absolute Neuts (auto) 4.7 Absolute Lymphs (auto) 0.78 L Total Counted Not Reportable Differential Comment Sodium 136 Potassium 4.1 Chloride 97 L Carbon Dioxide 28.0 Anion Gap 11 BUN 14 Creatinine 1.57 H Estim Creat Clear Calc 69.28 Est GFR (MDRD) Af Amer 65 Est GFR (MDRD) Non-Af 53 L BUN/Creatinine Ratio 8.9 L Glucose 223 H Lactic Acid 2.2 H Calcium 7.9 L Total Bilirubin 0.90 Direct Bilirubin 0.12 AST 43 H ALT 74 H Alkaline Phosphatase 46 Total Creatine Kinase Troponin I < 0.015 Total Protein 7.3 Albumin 3.8 Globulin 3.5 Albumin/Globulin Ratio Amylase 33 Lipase 228 Urine Color Urine Clarity Urine pH Ur Specific [place] Urine Protein Urine Glucose (UA) Urine Ketones Urine Occult Blood Urine Nitrite Urine Bilirubin Urine Urobilinogen Ur Leukocyte Esterase Urine RBC Urine WBC Ur Squamous Epith Cells Urine Bacteria Urine Mucus 08/24/18 08/24/18 08/24/18 16:11 17:50 17:50 WBC 6.4 RBC 4.48 L Hgb 14.1 Hct 42.6 MCV 95.1 H MCH 31.5 MCHC 33.1 RDW 14.5 RDW Differential 48.7 H Plt Count 152 MPV 10.1 Immature Gran % (Auto) 0.300 Neut % (Auto) 87.4 H Lymph % (Auto) 7.9 L [place] % (Auto) 3.1 Eos % (Auto) 0.8 Baso % (Auto) 0.5 Absolute Neuts (auto) 5.6 Absolute Lymphs (auto) 0.51 L Total Counted Not Reportable Differential Comment SCANNED Sodium 132 L Potassium 6.3 H* Chloride 105 Carbon Dioxide 19.0 L Anion Gap 8 BUN 17 Creatinine 1.45 H Estim Creat Clear Calc 75.01 Est GFR (MDRD) Af Amer 71 Est GFR (MDRD) Non-Af 59 L BUN/Creatinine Ratio 11.7 Glucose 265 H Lactic Acid 2.5 H Calcium 6.6 L Total Bilirubin Direct Bilirubin AST ALT Alkaline Phosphatase Total Creatine Kinase 765 H Troponin I Total Protein Albumin Globulin Albumin/Globulin Ratio Amylase Lipase Urine Color Urine Clarity Urine pH Ur Specific [place] Urine Protein Urine Glucose (UA) Urine Ketones Urine Occult Blood Urine Nitrite Urine Bilirubin Urine Urobilinogen Ur Leukocyte Esterase Urine RBC Urine WBC Ur Squamous Epith Cells Urine Bacteria Urine Mucus 08/24/18 08/24/18 08/24/18 18:55 19:55 20:10 WBC RBC Hgb Hct MCV MCH MCHC RDW RDW Differential Plt Count MPV Immature Gran % (Auto) Neut % (Auto) Lymph % (Auto) [place] % (Auto) Eos % (Auto) Baso % (Auto) Absolute Neuts (auto) Absolute Lymphs (auto) Total Counted Differential Comment Sodium 132 L Potassium 6.5 H* Chloride 104 Carbon Dioxide 20.0 L Anion Gap 8 BUN 19 H Creatinine 1.48 H Estim Creat Clear Calc 73.49 Est GFR (MDRD) Af Amer 69 Est GFR (MDRD) Non-Af 57 L BUN/Creatinine Ratio 12.8 Glucose 286 H Lactic Acid 2.1 H Calcium 6.7 L Total Bilirubin Direct Bilirubin AST ALT Alkaline Phosphatase Total Creatine Kinase Troponin I Total Protein Albumin Globulin Albumin/Globulin Ratio Amylase Lipase Urine Color Yellow Urine Clarity Clear Urine pH 6.0 Ur Specific [place] 1.010 Urine Protein 30 H Urine Glucose (UA) 100 H Urine Ketones Negative Urine Occult Blood 150 H Urine Nitrite Negative Urine Bilirubin Negative Urine Urobilinogen Normal Ur Leukocyte Esterase 25 H Urine RBC 0-5 SEEN Urine WBC 0 SEEN Ur Squamous Epith Cells 0 SEEN Urine Bacteria 0 SEEN Urine Mucus 0 SEEN 08/25/18 08/25/18 08/25/18 00:46 00:46 05:40 WBC 6.5 RBC 4.09 L Hgb 13.0 Hct 38.5 L MCV 94.1 H MCH 31.8 MCHC 33.8 RDW 14.6 RDW Differential 49.5 H Plt Count 167 MPV 10.3 Immature Gran % (Auto) 0.200 Neut % (Auto) 79.9 H Lymph % (Auto) 10.3 L [place] % (Auto) 9.2 Eos % (Auto) 0.2 Baso % (Auto) 0.2 Absolute Neuts (auto) 5.2 Absolute Lymphs (auto) 0.67 L Total Counted Not Reportable Differential Comment Sodium Potassium Chloride Carbon Dioxide Anion Gap BUN Creatinine Estim Creat Clear Calc Est GFR (MDRD) Af Amer Est GFR (MDRD) Non-Af BUN/Creatinine Ratio Glucose Lactic Acid 2.8 H Calcium Total Bilirubin Direct Bilirubin AST ALT Alkaline Phosphatase Total Creatine Kinase 975 H Troponin I Total Protein Albumin Globulin Albumin/Globulin Ratio Amylase Lipase Urine Color Urine Clarity Urine pH Ur Specific [place] Urine Protein Urine Glucose (UA) Urine Ketones Urine Occult Blood Urine Nitrite Urine Bilirubin Urine Urobilinogen Ur Leukocyte Esterase Urine RBC Urine WBC Ur Squamous Epith Cells Urine Bacteria Urine Mucus 08/25/18 08/25/18 05:40 08:19 WBC RBC Hgb Hct MCV MCH MCHC RDW RDW Differential Plt Count MPV Immature Gran % (Auto) Neut % (Auto) Lymph % (Auto) [place] % (Auto) Eos % (Auto) Baso % (Auto) Absolute Neuts (auto) Absolute Lymphs (auto) Total Counted Differential Comment Sodium 138 Potassium 3.6 Chloride 103 Carbon Dioxide 25.0 Anion Gap 10 BUN 10 Creatinine 1.02 Estim Creat Clear Calc 106.63 Est GFR (MDRD) Af Amer 106 Est GFR (MDRD) Non-Af 88 BUN/Creatinine Ratio 9.8 L Glucose 195 H Lactic Acid Pending Calcium 7.2 L Total Bilirubin 0.70 Direct Bilirubin AST 59 H ALT 78 H Alkaline Phosphatase 33 L Total Creatine Kinase Troponin I Total Protein 6.3 L Albumin 3.2 Globulin 3.1 Albumin/Globulin Ratio 1.0 Amylase Lipase Urine Color Urine Clarity Urine pH Ur Specific [place] Urine Protein Urine Glucose (UA) Urine Ketones Urine Occult Blood Urine Nitrite Urine Bilirubin Urine Urobilinogen Ur Leukocyte Esterase Urine RBC Urine WBC Ur Squamous Epith Cells Urine Bacteria Urine Mucus POC Glucose 08/25/18 08/24/18 08/24/18 06:34 21:01 17:38 POC Glucose 191 H 263 H 256 H 08/24/18 08/24/18 17:37 14:32 POC Glucose 299 H 203 H Medical Necessity - Tobacco Use Smoking Status: Never smoker Tobacco Use: Chew Assessment/Plan All Active Problems Acute cholecystitis (Acute) 38-year-old male with acute cholecystitis 1. Patient's gallbladder was mildly inflamed at best. The patient's white count continues to be normal today I will stop antibiotics. 2. Patient is having clear yellow urine and it is copious now that he has been bolused several times. I will remove his Avina. The patient's creatinine has returned to normal but his lactate continues to rise as there was a CPK. I believe that he tore an oblique on the right side. He said he felt a pop when he was vomiting. It does appear thickened on that side on the CAT scan. I believe his elevated CPK and potassium are due to rhabdomyolysis and I would continue heavy IV hydration to continue good urine output until CPK begins to decrease. 3. Repeat lactate pending. I will repeat a CPK this afternoon. If things begin to down trend he can be discharged home. Chacho Calles MD Pager: [facility] [address] [place], [place] [address], [address] [place] [address] Office:
[2018-08-25 09:20] LABS: Lactic Acid 1.7 mmol/L (0.4-2.0)
[2018-08-25 10:37] LABS: CPK Total, Creatine Kinase 1068 U/L (39-308)
[2018-08-25] MEDS: Fenofibrate 145 MG Tablet PO (10:39)
[2018-08-25] MEDS: Docusate Sodium 100 MG Capsule PO ×2 (10:39→22:20)
[2018-08-25 12:06] LABS: Bedside Glucose 198 mg/dL (70-110)
--- NOTE | 2018-08-25 12:38 | PN_ITS ---
<Faith Ponce - Last Filed: 08/25/18 12:39> Patient Problems: Active and Suspected Problems Acute cholecystitis (Acute) Subjective: Patient seen and examined. Concerned about how his pain will be controlled at discharge. Reports pain overnight which he states is poorly controlled on oral pain medication. Denies fever, chills. Denies other current complaints. - Physical Exam General: Alert, Oriented x3, Cooperative, No apparent distress HEENT: Atraumatic, PERRLA, EOMI, Normocephalic Neck: Supple, No JVD, Negative Carotid Bruits Lungs: Clear to auscultation, Normal air movement Cardiovascular: Regular Rhythm, Normal S1, Normal S2, No murmurs, Tachycardic Abdomen: Bowel Sounds Present, Soft, Obese, Tender, - - Lap sites x4 intact Extremities: No clubbing, No cyanosis, No edema, Capillary Refill Less than 3 Seconds Skin: No rashes, No breakdown Musculoskeletal: No Tenderness to Palpation of Joints or Extremities Neurological: Cranial nerves II-XII grossly intact, Neuro grossly intact Psych/Mental Status: Normal Affect, Appropriate Vital Signs Temp Pulse Resp BP Pulse Ox 98.2 F 105 H 18 149/87 H 93 08/25/18 08:23 08/25/18 08:23 08/25/18 08:23 08/25/18 08:23 08/25/18 08:23 Oxygen Flow Rate (L/min) 2 Oxygen Delivery Method Nasal Cannula Weight: 297 lb Body Mass Index (BMI) 41.4 Finger Stick Blood Glucose 256 Intake and Output for Last 24 Hours 08/23/18 08/24/18 08/25/18 23:59 23:59 23:59 Intake Total 3300 / 3300 5466 / 5466 Output Total 3800 / 3800 Balance 3300 / 3300 1666 / 1666 Laboratory Tests Past 24 Hrs 08/24/18 08/24/18 08/24/18 16:11 17:50 17:50 WBC 6.4 RBC 4.48 L Hgb 14.1 Hct 42.6 MCV 95.1 H MCH 31.5 MCHC 33.1 RDW 14.5 RDW Differential 48.7 H Plt Count 152 MPV 10.1 Immature Gran % (Auto) 0.300 Neut % (Auto) 87.4 H Lymph % (Auto) 7.9 L [place] % (Auto) 3.1 Eos % (Auto) 0.8 Baso % (Auto) 0.5 Absolute Neuts (auto) 5.6 Absolute Lymphs (auto) 0.51 L Total Counted Not Reportable Differential Comment SCANNED Sodium 132 L Potassium 6.3 H* Chloride 105 Carbon Dioxide 19.0 L Anion Gap 8 BUN 17 Creatinine 1.45 H Estim Creat Clear Calc 75.01 Est GFR (MDRD) Af Amer 71 Est GFR (MDRD) Non-Af 59 L BUN/Creatinine Ratio 11.7 Glucose 265 H Lactic Acid 2.5 H Calcium 6.6 L Total Bilirubin AST ALT Alkaline Phosphatase Total Creatine Kinase 765 H Total Protein Albumin Globulin Albumin/Globulin Ratio Urine Color Urine Clarity Urine pH Ur Specific [place] Urine Protein Urine Glucose (UA) Urine Ketones Urine Occult Blood Urine Nitrite Urine Bilirubin Urine Urobilinogen Ur Leukocyte Esterase Urine RBC Urine WBC Ur Squamous Epith Cells Urine Bacteria Urine Mucus 08/24/18 08/24/18 08/24/18 18:55 19:55 20:10 WBC RBC Hgb Hct MCV MCH MCHC RDW RDW Differential Plt Count MPV Immature Gran % (Auto) Neut % (Auto) Lymph % (Auto) [place] % (Auto) Eos % (Auto) Baso % (Auto) Absolute Neuts (auto) Absolute Lymphs (auto) Total Counted Differential Comment Sodium 132 L Potassium 6.5 H* Chloride 104 Carbon Dioxide 20.0 L Anion Gap 8 BUN 19 H Creatinine 1.48 H Estim Creat Clear Calc 73.49 Est GFR (MDRD) Af Amer 69 Est GFR (MDRD) Non-Af 57 L BUN/Creatinine Ratio 12.8 Glucose 286 H Lactic Acid 2.1 H Calcium 6.7 L Total Bilirubin AST ALT Alkaline Phosphatase Total Creatine Kinase Total Protein Albumin Globulin Albumin/Globulin Ratio Urine Color Yellow Urine Clarity Clear Urine pH 6.0 Ur Specific [place] 1.010 Urine Protein 30 H Urine Glucose (UA) 100 H Urine Ketones Negative Urine Occult Blood 150 H Urine Nitrite Negative Urine Bilirubin Negative Urine Urobilinogen Normal Ur Leukocyte Esterase 25 H Urine RBC 0-5 SEEN Urine WBC 0 SEEN Ur Squamous Epith Cells 0 SEEN Urine Bacteria 0 SEEN Urine Mucus 0 SEEN 08/25/18 08/25/18 08/25/18 00:46 00:46 05:40 WBC 6.5 RBC 4.09 L Hgb 13.0 Hct 38.5 L MCV 94.1 H MCH 31.8 MCHC 33.8 RDW 14.6 RDW Differential 49.5 H Plt Count 167 MPV 10.3 Immature Gran % (Auto) 0.200 Neut % (Auto) 79.9 H Lymph % (Auto) 10.3 L [place] % (Auto) 9.2 Eos % (Auto) 0.2 Baso % (Auto) 0.2 Absolute Neuts (auto) 5.2 Absolute Lymphs (auto) 0.67 L Total Counted Not Reportable Differential Comment Sodium Potassium Chloride Carbon Dioxide Anion Gap BUN Creatinine Estim Creat Clear Calc Est GFR (MDRD) Af Amer Est GFR (MDRD) Non-Af BUN/Creatinine Ratio Glucose Lactic Acid 2.8 H Calcium Total Bilirubin AST ALT Alkaline Phosphatase Total Creatine Kinase 975 H Total Protein Albumin Globulin Albumin/Globulin Ratio Urine Color Urine Clarity Urine pH Ur Specific [place] Urine Protein Urine Glucose (UA) Urine Ketones Urine Occult Blood Urine Nitrite Urine Bilirubin Urine Urobilinogen Ur Leukocyte Esterase Urine RBC Urine WBC Ur Squamous Epith Cells Urine Bacteria Urine Mucus 08/25/18 08/25/18 08/25/18 05:40 05:40 08:19 WBC RBC Hgb Hct MCV MCH MCHC RDW RDW Differential Plt Count MPV Immature Gran % (Auto) Neut % (Auto) Lymph % (Auto) [place] % (Auto) Eos % (Auto) Baso % (Auto) Absolute Neuts (auto) Absolute Lymphs (auto) Total Counted Differential Comment Sodium 138 Potassium 3.6 Chloride 103 Carbon Dioxide 25.0 Anion Gap 10 BUN 10 Creatinine 1.02 Estim Creat Clear Calc 106.63 Est GFR (MDRD) Af Amer 106 Est GFR (MDRD) Non-Af 88 BUN/Creatinine Ratio 9.8 L Glucose 195 H Lactic Acid 1.7 Calcium 7.2 L Total Bilirubin 0.70 AST 59 H ALT 78 H Alkaline Phosphatase 33 L Total Creatine Kinase 1068 H Total Protein 6.3 L Albumin 3.2 Globulin 3.1 Albumin/Globulin Ratio 1.0 Urine Color Urine Clarity Urine pH Ur Specific [place] Urine Protein Urine Glucose (UA) Urine Ketones Urine Occult Blood Urine Nitrite Urine Bilirubin Urine Urobilinogen Ur Leukocyte Esterase Urine RBC Urine WBC Ur Squamous Epith Cells Urine Bacteria Urine Mucus 08/25/18 12:10 WBC RBC Hgb Hct MCV MCH MCHC RDW RDW Differential Plt Count MPV Immature Gran % (Auto) Neut % (Auto) Lymph % (Auto) [place] % (Auto) Eos % (Auto) Baso % (Auto) Absolute Neuts (auto) Absolute Lymphs (auto) Total Counted Differential Comment Sodium Potassium Chloride Carbon Dioxide Anion Gap BUN Creatinine Estim Creat Clear Calc Est GFR (MDRD) Af Amer Est GFR (MDRD) Non-Af BUN/Creatinine Ratio Glucose Lactic Acid Calcium Total Bilirubin AST ALT Alkaline Phosphatase Total Creatine Kinase Pending Total Protein Albumin Globulin Albumin/Globulin Ratio Urine Color Urine Clarity Urine pH Ur Specific [place] Urine Protein Urine Glucose (UA) Urine Ketones Urine Occult Blood Urine Nitrite Urine Bilirubin Urine Urobilinogen Ur Leukocyte Esterase Urine RBC Urine WBC Ur Squamous Epith Cells Urine Bacteria Urine Mucus POC Glucose 08/25/18 08/25/18 08/24/18 11:46 06:34 21:01 POC Glucose 198 H 191 H 263 H 08/24/18 08/24/18 08/24/18 17:38 17:37 14:32 POC Glucose 256 H 299 H 203 H Medical Necessity - Tobacco Use Smoking Status: Never smoker Tobacco Use: Chew Assessment/Plan All Active Problems Acute cholecystitis (Acute) 1. Acute cholecystitis status post laparoscopic cholecystectomy with cholangiogram- PRN pain regimen. 2. Lactic acidosis-suspect reactive. No evidence of sepsis. No leukocytosis or fever. Repeat lactic acid this morning 1.7. Chest x-ray and urinalysis unremarkable. Blood culture and urine culture pending. IV antibiotics discontinued. 3. Acute kidney injury-Resolved. IV fluids. Trend BMP. 4. Hypotension-suspect secondary to volume depletion. Resolved. 5. Acute rhabdomyolysis-suspected secondary to abdominal muscle tear due to vomiting prior to admission. IV fluids. Trend CPK. 6. Transient hyperkalemia-initial potassium 4.1 on admission. Repeat labs in evening 6.5. Unsure of accuracy. Patient did receive Kayexalate x1. Repeat potassium 3.6. 7. Type 2 diabetes mellitus-hold metformin regimen. Accu-Cheks ACHS with sliding scale insulin. 8. Hypertension-hold lisinopril regimen given hypotension and PRATIK. 9. Hyperlipidemia-continue fenofibrate. 10. Hypothyroidism-continue home Synthroid/liothyronine regimen. 11. Obesity-encouraged diet lifestyle modifications. 12. Gout- previously on Uloric which he reports he is no longer taking due to cost. DVT prophylaxis- [facility] [place] signing off at this time. Stable for discharge from medical standpoint pending repeat CPK. This patient was seen by ERICA Zhao under the supervision of Dr. Renner. <Georges Renner F - Last Filed: 08/25/18 13:42> - Physical Exam Vital Signs Temp Pulse Resp BP Pulse Ox 98.2 F 108 H 18 149/87 H 93 08/25/18 08:23 08/25/18 10:00 08/25/18 08:23 08/25/18 08:23 08/25/18 08:23 Oxygen Flow Rate (L/min) 2 Oxygen Delivery Method Nasal Cannula Weight: 297 lb Body Mass Index (BMI) 41.4 Finger Stick Blood Glucose 256 Intake and Output for Last 24 Hours 08/23/18 08/24/18 08/25/18 23:59 23:59 23:59 Intake Total 3300 / 3300 5466 / 5466 Output Total 3800 / 3800 Balance 3300 / 3300 1666 / 1666 Laboratory Tests Past 24 Hrs 08/24/18 08/24/18 08/24/18 16:11 17:50 17:50 WBC 6.4 RBC 4.48 L Hgb 14.1 Hct 42.6 MCV 95.1 H MCH 31.5 MCHC 33.1 RDW 14.5 RDW Differential 48.7 H Plt Count 152 MPV 10.1 Immature Gran % (Auto) 0.300 Neut % (Auto) 87.4 H Lymph % (Auto) 7.9 L [place] % (Auto) 3.1 Eos % (Auto) 0.8 Baso % (Auto) 0.5 Absolute Neuts (auto) 5.6 Absolute Lymphs (auto) 0.51 L Total Counted Not Reportable Differential Comment SCANNED Sodium 132 L Potassium 6.3 H* Chloride 105 Carbon Dioxide 19.0 L Anion Gap 8 BUN 17 Creatinine 1.45 H Estim Creat Clear Calc 75.01 Est GFR (MDRD) Af Amer 71 Est GFR (MDRD) Non-Af 59 L BUN/Creatinine Ratio 11.7 Glucose 265 H Lactic Acid 2.5 H Calcium 6.6 L Total Bilirubin AST ALT Alkaline Phosphatase Total Creatine Kinase 765 H Total Protein Albumin Globulin Albumin/Globulin Ratio Urine Color Urine Clarity Urine pH Ur Specific [place] Urine Protein Urine Glucose (UA) Urine Ketones Urine Occult Blood Urine Nitrite Urine Bilirubin Urine Urobilinogen Ur Leukocyte Esterase Urine RBC Urine WBC Ur Squamous Epith Cells Urine Bacteria Urine Mucus 08/24/18 08/24/18 08/24/18 18:55 19:55 20:10 WBC RBC Hgb Hct MCV MCH MCHC RDW RDW Differential Plt Count MPV Immature Gran % (Auto) Neut % (Auto) Lymph % (Auto) [place] % (Auto) Eos % (Auto) Baso % (Auto) Absolute Neuts (auto) Absolute Lymphs (auto) Total Counted Differential Comment Sodium 132 L Potassium 6.5 H* Chloride 104 Carbon Dioxide 20.0 L Anion Gap 8 BUN 19 H Creatinine 1.48 H Estim Creat Clear Calc 73.49 Est GFR (MDRD) Af Amer 69 Est GFR (MDRD) Non-Af 57 L BUN/Creatinine Ratio 12.8 Glucose 286 H Lactic Acid 2.1 H Calcium 6.7 L Total Bilirubin AST ALT Alkaline Phosphatase Total Creatine Kinase Total Protein Albumin Globulin Albumin/Globulin Ratio Urine Color Yellow Urine Clarity Clear Urine pH 6.0 Ur Specific [place] 1.010 Urine Protein 30 H Urine Glucose (UA) 100 H Urine Ketones Negative Urine Occult Blood 150 H Urine Nitrite Negative Urine Bilirubin Negative Urine Urobilinogen Normal Ur Leukocyte Esterase 25 H Urine RBC 0-5 SEEN Urine WBC 0 SEEN Ur Squamous Epith Cells 0 SEEN Urine Bacteria 0 SEEN Urine Mucus 0 SEEN 08/25/18 08/25/18 08/25/18 00:46 00:46 05:40 WBC 6.5 RBC 4.09 L Hgb 13.0 Hct 38.5 L MCV 94.1 H MCH 31.8 MCHC 33.8 RDW 14.6 RDW Differential 49.5 H Plt Count 167 MPV 10.3 Immature Gran % (Auto) 0.200 Neut % (Auto) 79.9 H Lymph % (Auto) 10.3 L [place] % (Auto) 9.2 Eos % (Auto) 0.2 Baso % (Auto) 0.2 Absolute Neuts (auto) 5.2 Absolute Lymphs (auto) 0.67 L Total Counted Not Reportable Differential Comment Sodium Potassium Chloride Carbon Dioxide Anion Gap BUN Creatinine Estim Creat Clear Calc Est GFR (MDRD) Af Amer Est GFR (MDRD) Non-Af BUN/Creatinine Ratio Glucose Lactic Acid 2.8 H Calcium Total Bilirubin AST ALT Alkaline Phosphatase Total Creatine Kinase 975 H Total Protein Albumin Globulin Albumin/Globulin Ratio Urine Color Urine Clarity Urine pH Ur Specific [place] Urine Protein Urine Glucose (UA) Urine Ketones Urine Occult Blood Urine Nitrite Urine Bilirubin Urine Urobilinogen Ur Leukocyte Esterase Urine RBC Urine WBC Ur Squamous Epith Cells Urine Bacteria Urine Mucus 08/25/18 08/25/18 08/25/18 05:40 05:40 08:19 WBC RBC Hgb Hct MCV MCH MCHC RDW RDW Differential Plt Count MPV Immature Gran % (Auto) Neut % (Auto) Lymph % (Auto) [place] % (Auto) Eos % (Auto) Baso % (Auto) Absolute Neuts (auto) Absolute Lymphs (auto) Total Counted Differential Comment Sodium 138 Potassium 3.6 Chloride 103 Carbon Dioxide 25.0 Anion Gap 10 BUN 10 Creatinine 1.02 Estim Creat Clear Calc 106.63 Est GFR (MDRD) Af Amer 106 Est GFR (MDRD) Non-Af 88 BUN/Creatinine Ratio 9.8 L Glucose 195 H Lactic Acid 1.7 Calcium 7.2 L Total Bilirubin 0.70 AST 59 H ALT 78 H Alkaline Phosphatase 33 L Total Creatine Kinase 1068 H Total Protein 6.3 L Albumin 3.2 Globulin 3.1 Albumin/Globulin Ratio 1.0 Urine Color Urine Clarity Urine pH Ur Specific [place] Urine Protein Urine Glucose (UA) Urine Ketones Urine Occult Blood Urine Nitrite Urine Bilirubin Urine Urobilinogen Ur Leukocyte Esterase Urine RBC Urine WBC Ur Squamous Epith Cells Urine Bacteria Urine Mucus 08/25/18 12:10 WBC RBC Hgb Hct MCV MCH MCHC RDW RDW Differential Plt Count MPV Immature Gran % (Auto) Neut % (Auto) Lymph % (Auto) [place] % (Auto) Eos % (Auto) Baso % (Auto) Absolute Neuts (auto) Absolute Lymphs (auto) Total Counted Differential Comment Sodium Potassium Chloride Carbon Dioxide Anion Gap BUN Creatinine Estim Creat Clear Calc Est GFR (MDRD) Af Amer Est GFR (MDRD) Non-Af BUN/Creatinine Ratio Glucose Lactic Acid Calcium Total Bilirubin AST ALT Alkaline Phosphatase Total Creatine Kinase 1166 H Total Protein Albumin Globulin Albumin/Globulin Ratio Urine Color Urine Clarity Urine pH Ur Specific [place] Urine Protein Urine Glucose (UA) Urine Ketones Urine Occult Blood Urine Nitrite Urine Bilirubin Urine Urobilinogen Ur Leukocyte Esterase Urine RBC Urine WBC Ur Squamous Epith Cells Urine Bacteria Urine Mucus POC Glucose 08/25/18 08/25/18 08/24/18 11:46 06:34 21:01 POC Glucose 198 H 191 H 263 H 08/24/18 08/24/18 08/24/18 17:38 17:37 14:32 POC Glucose 256 H 299 H 203 H Code Visit Addendum: Dr. Renner I personally examined the patient and reviewed the chart. I agree with the above. 38-year-old male who presented with acute cholecystitis to the ER was taken for a lap cholecystectomy last evening. On admission he was found to have acute kidney injury and was given IV fluids he was also hypotensive, at one point into the 80s and 90s. He was started on antibiotics and taken for surgery. Today he is doing much better he has some constipation, but his acute kidney injury has resolved and surgery was successful. Of note there was a CPK ordered on admission which was elevated and unfortunate has continued to climb. There is some question of a pulled abdominal rectus muscle being the source of this. We will continue his IV fluids at 150 and in discussion with surgery would like to keep him 1 more night he could probably go home today however he has not a big water drinker therefore he would just be safer to observe overnight and discharge in the morning. Inpatient E&M: 09398 Subs Hosp L2
--- NOTE | 2018-08-25 12:59 | DCINST_ITS ---
Discharge Diet: Light diet - advance as tolerated Discharge Activity: Return to Normal Activity, May Not Drive - for 2-3 days or while taking narcotic pain medicataions., - - Do not drive, work heavy equipment or sign legal documents for 24 hours. May shower in (days): 1 - with the bandage in place. Lifting Restrictions: 20 lbs for 4 weeks Additional Activity Instructions:: Pain medication may cause nausea. You should typically eat light foods as you take your pain medications. Pain medication may also cause constipation. If this is a problem for you, please discuss with your doctor. Call your doctor if your incision/area has: Continuous Slow Oozing, Sudden Increased Bleeding, Increased Pain/ Swelling, Increased Redness, Foul Smelling Discharge, Fever of 101 or Higher Call your doctor if you observe: Fever of 101 or Higher Suture Line Care: Avoid Pulling/Pushing, Avoid Pinching/Bending Additional Dressing/Incision Instructions:: Leave operative bandaids on for 2 days. When you remove dressing, leave Steri-Strips on until your follow-up appointment, or until the Steri-Strips fall off on their own. Allergies/Adverse Reactions: Allergies No Known Allergies Allergy (Verified 08/24/18 11:00) Medications to take at Discharge Betamethasone Dipropionate 1 applic TP DAILY 08/24/18 Fenofibrate 160 mg PO DAILY 08/24/18 Ibuprofen 800 mg PO PRN PRN 08/24/18 Levothyroxine Sodium [Synthroid] 200 mcg PO DAILY 08/24/18 Liothyronine Sodium 50 mcg PO DAILY 08/24/18 Lisinopril 5 mg PO DAILY 08/24/18 Metformin HCl 1,000 mg PO DAILY 08/24/18 Testosterone Cypionate 1 ml IM TH 08/24/18 Acetaminophen [Tylenol Tablet] 650 mg PO Q6H PRN PRN tablet 08/25/18 Docusate Sodium [Colace] 100 mg PO BID #20 capsule 08/25/18 Ibuprofen [Motrin] 600 mg PO Q6H PRN PRN tablet 08/25/18 Oxycodone [Oxyir] 5 - 10 mg PO Q4H PRN PRN 7 Days #40 tablet 08/25/18 The following prescriptions were given: Oxycodone [Oxyir] 5 - 10 mg PO Q4H PRN PRN 7 Days #40 tablet PRN Reason: Severe Pain (6-05/26) Docusate Sodium [Colace] 100 mg PO BID #20 capsule Primary Care Physician: [facility] Doctor,Out of [NON-STAFF] - Test Results: Test results from this visit will be discussed in further detail at your follow- up appointment, if applicable. Please Follow Up With: Chacho Calles MD When: Please call to schedule 1 week follow up appointment. [phone]
--- NOTE | 2018-08-25 12:59 | PCM.WORK.EX ---
Work/School Excuse Work/School Excuse for:: Patient Please excuse this person from:: Work From: 08/24/18 through: 08/29/18 Restrictions: Light Duty - May return to work 08/30/18 on light duty, no lifting over 20 lbs
[2018-08-25] MEDS: Polyethylene Glycol 3350 17 GM PACKET PO (13:02)
[2018-08-25 13:04] LABS: CPK Total, Creatine Kinase 1166 U/L (39-308)
--- NOTE | 2018-08-25 13:21 | NURSING ---
DR FELIZ NOTIFIED OF CPK 1166.
--- NOTE | 2018-08-25 15:11 | NURSING ---
PT RESTING IN BED WITH EYES CLOSED, RESP EASY
[2018-08-25] MEDS: Ondansetron 4 MG/2 ML Vial IV (15:54)
[2018-08-25] MEDS: 0.9% NaCl Peripheral Flush Adult/Peds IV (15:55)
[2018-08-25 16:15] LABS: Bedside Glucose 167 mg/dL (70-110)
[2018-08-25] MEDS: Ibuprofen 600 MG Tablet PO (17:13)
--- NOTE | 2018-08-25 17:30 | NURSING ---
PT REQUEST SUPPOSITORY - DR ROBBINS NOTIFIED - ORDER RECEIVED.
[2018-08-25] MEDS: Bisacodyl 10 MG Suppository RECTAL (17:57)
--- NOTE | 2018-08-25 19:33 | NURSING ---
Pt. came on unit and met Faith Ponce NP and was asking her questions regarding pt in [facility]. Then, she came out to nurses' station and asked this RN to have the primary RN meet her out here to speak with her outside of the pt's room. Majo came out immediately and began speaking with pt at nurses' station. She verbalized that she was upset because she is afraid we will d/c pt and he will tank. She states that she was told by INVESTMENT OFFICER that the pt did not have sepsis and that illness was probably viral. states that I am an INVESTMENT OFFICER at [place] and I know that sepsis can be bacterial or viral. She states she is not impressed with our staff. She states that she is getting conflicting information from different doctors and that she wanted to take pt to [place] but that due to location ambulance had to bring pt to [facility] instead. upset that lactic acid is still elevated- Notified that lactic acid was drawn again this AM and is WNL at 1.4. then voiced concern of elevating CPK. (Another CPK was checked later this AM and was elevated at 1166) Majo RN was out at station speaking to pt's for over 30 minutes and requested to speak with Dr. Renner. notified of same and came to unit directly and went to pt's room to speak with pt and his . Time spent by doctor Renner was not followed- but was extensive.
[2018-08-25] MEDS: Acetaminophen 325 MG Tablet 650 MG PO (20:18)
[2018-08-25 22:41] LABS: Bedside Glucose 193 mg/dL (70-110)
[2018-08-26 03:43] VITALS: BP 142/84; PULSE 98; RESP 18; TEMP 36.6; O2SAT 95
[2018-08-26] MEDS: Levothyroxine 100 MCG Tablet 200 MCG PO (05:23)
[2018-08-26] MEDS: 0.9% Normal Saline 1,000 ML 150 ML IV (05:23)
[2018-08-26] MEDS: oxyCODONE 5 MG Tablet PO ×2 (05:26→07:55)
--- NOTE | 2018-08-26 05:45 | NURSING ---
This RN was in room medicating pt for pain & emptying urinal. Attempted to educate pt again on importance of IS and splinting abd with coughing bc pt has more of a cough this AM and states that it hurts. Pt responded in an annoyed/upset tone and said I know, I know. I'm just tired of hurting. This RN tried to explain to pt that not using the IS could lead to pneumonia and that could cause more problems. Pt then accused this RN of having attitude and said where's your sympathy? This RN stated that she has had sympathy and was just trying to help the pt. Pt currently resting in bed, will continue to monitor.
[2018-08-26 06:55] LABS: Bedside Glucose 137 mg/dL (70-110)
[2018-08-26 07:22] LABS: Absolute Lymphocyte Count 1.08 X10^3/ul (0.83-4.51); Absolute Neutrophil Count 3.8 X10^3/uL (2.0-7.7); Basophil# 0.03 X10^3/uL; Basophil% 0.5 % (0-1); Eosinophil# 0.12 X10^3/uL; Eosinophils% 2.1 % (0-5); Lymphocyte # 1.08 X10^3/ul (4.0); Lymphocyte % 18.8 % (19-41); Mean Corp Hgb Conc 34.2 g/gl (32-36); Mean Corpuscular Hgb 32.3 pg (27.0-32.0); Mean Corpuscular Volume 94.5 fL (80-94); Mean Platelet Vol. 9.4 fl (6.2-12.0); Monocyte# 0.68 X10^3/uL; Monocyte% 11.8 % (0-10); Neutrophil # 3.83 X10^3/uL (2.7-7.7); Neutrophil % 66.5 % (47-70); Platelet Count 142 K/mm3 (150-450); RBC Distribution Width CV 14.6 % (11.6-14.6); RBC Distribution Width SD 48.5 fl (35.1-43.9); Red Blood Count 4.02 M/mm3 (4.6-6.2); White Blood Count 5.8 K/mm3 (4.4-11.0)
[2018-08-26 07:23] LABS: POSITIVE COUNT NO; POSITIVE DIFFERENTIAL NO; POSITIVE MORPHOLOGY NO
[2018-08-26 07:39] LABS: Anion Gap 6 (5-15); BUN 8 mg/dL (7-18); BUN/Creat Ratio 10.2 RATIO (10-20); CPK Total, Creatine Kinase 897 U/L (39-308); Calcium,Total 7.3 mg/dL (8.5-10.1); Chloride 103 mmol/L (98-107); Creatinine, Serum 0.78 mg/dL (0.70-1.30); EST Glomerular Filtration Rate 119 mL/min (>60); Est Glom Filt Rate - Afr Amer 144 mL/min (>60); Estimated Creatinine Clearance 139.44 ml/min; Glucose 140 mg/dL (74-106); Potassium 3.7 mmol/L (3.5-5.1); Sodium Level 137 mmol/L (136-145)
[2018-08-26 07:48] VITALS: BP 141/78; PULSE 102; RESP 18; TEMP 36.8; O2SAT 92
[2018-08-26 07:55] VITALS: BP 141/78; PULSE 102; RESP 18; TEMP 36.8; O2SAT 92
[2018-08-26] MEDS: Ibuprofen 600 MG Tablet PO (07:55)
--- NOTE | 2018-08-26 07:55 | PCM.DC.SUM ---
Discharge Date and Diagnosis - Problem List Patient Problems: Active and Suspected Problems Acute cholecystitis (Acute) Date of Admission: 08/24/18 Date of Discharge: 08/26/18 - Primary Discharge Diagnosis Active and Suspected Problems Acute cholecystitis (Acute) Rhabdomyolysis Acute kidney injury Hospital Course and Treatment Imaging Results: Clinical Impression(s) from Imaging Studies Abdomen/Pelvis CT 08/24/18 11:00 IMPRESSION: Fatty infiltration of the liver, no discrete lesion 5 mm gallstone near the neck of the gallbladder without gallbladder wall thickening or pericholecystic inflammation No CT evidence of an acute inflammatory process, normal appendix visualized Electronically Signed: Ryan Espinosa MD at 12:20 EST , Service support , Chest X-Ray 08/24/18 11:01 IMPRESSION: Normal x-ray examination of the chest. Electronically Signed: Ryan Espinosa MD at 12:38 EST , Service support , Gallbladder Ultrasound 08/24/18 12:30 IMPRESSION: The gallbladder is distended with wall thickening, pericholecystic fluid and positive Mckinney sign. A stone noted on CT earlier today not seen on this study but other findings are all consistent with cholecystitis. Surgical consultation recommended Hepatomegaly with diffuse fatty infiltration, no discrete lesion. Electronically Signed: Ryan Espinosa MD at 14:14 EST , Service support , Cholangiogram 08/24/18 16:25 IMPRESSION: Normal intraoperative cholangiogram Electronically Signed: Ryan Espinosa MD at 20:28 EST , Service support , Hospitalist Operations: [email or web address] Procedures: None Summary of Care Provided: The patient is a 38 year old M presented with right-sided abdominal pain after feeling a pop. Ultrasound and CAT scan revealed a bile duct stone as well as thickening of the gallbladder. He was taken for surgery and had a cholecystectomy. The patient was noted to have increased potassium as well as CPK. He was given heavy fluid volume and his CPK continues to rise but his lactate and his creatinine did improve. The patient was An additional day due to his rising CPK and rhabdomyolysis. The following morning he was tolerating diet and his CPK was down trending and his abdominal pain was tolerable. He was discharged home in stable condition. Patient Problems: Active and Suspected Problems Acute cholecystitis (Acute) - Physical Exam General: Alert, Oriented x3, Cooperative Cardiovascular: Regular rate, Regular Rhythm Abdomen: Soft, Non-Distended, Tender, - - Incisions are clean dry and intact Vital Signs Temp Pulse Resp BP Pulse Ox 98.2 F 102 H 18 141/78 H 92 08/26/18 07:48 08/26/18 07:48 08/26/18 07:48 08/26/18 07:48 08/26/18 07:48 Oxygen Flow Rate (L/min) 2 Oxygen Delivery Method Room Air Weight: 297 lb Body Mass Index (BMI) 41.4 Finger Stick Blood Glucose 256 Intake and Output for Last 24 Hours 08/24/18 08/25/18 08/26/18 23:59 23:59 23:59 Intake Total 3300 / 3300 6786 / 6786 2448 / 2448 Output Total 3800 / 3800 1850 / 1850 Balance 3300 / 3300 2986 / 2986 598 / 598 Laboratory Tests Past 24 Hrs 08/25/18 08/25/18 08/25/18 05:40 08:19 12:10 WBC RBC Hgb Hct MCV MCH MCHC RDW RDW Differential Plt Count MPV Immature Gran % (Auto) Neut % (Auto) Lymph % (Auto) [place] % (Auto) Eos % (Auto) Baso % (Auto) Absolute Neuts (auto) Absolute Lymphs (auto) Total Counted Sodium Potassium Chloride Carbon Dioxide Anion Gap BUN Creatinine Estim Creat Clear Calc Est GFR (MDRD) Af Amer Est GFR (MDRD) Non-Af BUN/Creatinine Ratio Glucose Lactic Acid 1.7 Calcium Total Creatine Kinase 1068 H 1166 H Troponin I 08/25/18 08/26/18 08/26/18 12:10 07:10 07:10 WBC 5.8 RBC 4.02 L Hgb 13.0 Hct 38.0 L MCV 94.5 H MCH 32.3 H MCHC 34.2 RDW 14.6 RDW Differential 48.5 H Plt Count 142 L MPV 9.4 Immature Gran % (Auto) 0.300 Neut % (Auto) 66.5 Lymph % (Auto) 18.8 L [place] % (Auto) 11.8 H Eos % (Auto) 2.1 Baso % (Auto) 0.5 Absolute Neuts (auto) 3.8 Absolute Lymphs (auto) 1.08 Total Counted Not Reportable Sodium 137 Potassium 3.7 Chloride 103 Carbon Dioxide 28.0 Anion Gap 6 BUN 8 Creatinine 0.78 Estim Creat Clear Calc 139.44 Est GFR (MDRD) Af Amer 144 Est GFR (MDRD) Non-Af 119 BUN/Creatinine Ratio 10.2 Glucose 140 H Lactic Acid Calcium 7.3 L Total Creatine Kinase 897 H Troponin I < 0.015 POC Glucose 08/26/18 08/25/18 08/25/18 06:42 22:19 16:11 POC Glucose 137 H 193 H 167 H 08/25/18 11:46 POC Glucose 198 H Discharge Diet: Light diet - advance as tolerated Discharge Activity: Return to Normal Activity, May Not Drive - for 2-3 days or while taking narcotic pain medicataions., - - Do not drive, work heavy equipment or sign legal documents for 24 hours. May shower in (days): 1 - with the bandage in place. Additional Activity Instructions:: Pain medication may cause nausea. You should typically eat light foods as you take your pain medications. Pain medication may also cause constipation. If this is a problem for you, please discuss with your doctor. Call your doctor if your incision/area has: Continuous Slow Oozing, Sudden Increased Bleeding, Increased Pain/ Swelling, Increased Redness, Foul Smelling Discharge, Fever of 101 or Higher Call your doctor if you observe: Fever of 101 or Higher Suture Line Care: Avoid Pulling/Pushing, Avoid Pinching/Bending Additional Dressing/Incision Instructions:: Leave operative bandaids on for 2 days. When you remove dressing, leave Steri-Strips on until your follow-up appointment, or until the Steri-Strips fall off on their own. Home Medications: Medications to take at Discharge Betamethasone Dipropionate 1 applic TP DAILY 08/24/18 Fenofibrate 160 mg PO DAILY 08/24/18 Ibuprofen 800 mg PO PRN PRN 08/24/18 Levothyroxine Sodium [Synthroid] 200 mcg PO DAILY 08/24/18 Liothyronine Sodium 50 mcg PO DAILY 08/24/18 Lisinopril 5 mg PO DAILY 08/24/18 Metformin HCl 1,000 mg PO DAILY 08/24/18 Testosterone Cypionate 1 ml IM TH 08/24/18 Acetaminophen [Tylenol Tablet] 650 mg PO Q6H PRN PRN tablet 08/25/18 Docusate Sodium [Colace] 100 mg PO BID #20 capsule 08/25/18 Ibuprofen [Motrin] 600 mg PO Q6H PRN PRN tablet 08/25/18 Oxycodone [Oxyir] 5 - 10 mg PO Q4H PRN PRN 7 Days #40 tablet 08/25/18 Following Prescrptions Were Given to Patient: Oxycodone [Oxyir] 5 - 10 mg PO Q4H PRN PRN 7 Days #40 tablet PRN Reason: Severe Pain (6-05/26) Docusate Sodium [Colace] 100 mg PO BID #20 capsule Primary Care Physician: [facility] Doctor,Out of [NON-STAFF] - Please Follow Up With: Chacho Calles MD When: Please call to schedule 1 week follow up appointment. [phone] Medical Necessity - Tobacco Use Smoking Status: Never smoker Tobacco Use: Chew Meaningful Use Info Meaningful Use Diagnoses (Choose all that apply): None applicable
[2018-08-26] MEDS: Docusate Sodium 100 MG Capsule PO (07:56)
[2018-08-26] MEDS: Fenofibrate 145 MG Tablet PO (07:57)
--- NOTE | 2018-08-26 09:30 | PN_ITS ---
Subjective: Doing much better, abdominal pain improved after having a bowel movement last night. Denies any fevers, chills, shortness of breath. Vitals/I&O's: Vital Signs Temp Pulse Resp BP Pulse Ox 98.2 F 102 H 18 141/78 H 92 08/26/18 07:48 08/26/18 07:48 08/26/18 07:48 08/26/18 07:48 08/26/18 07:48 Oxygen Flow Rate (L/min) 2 Oxygen Delivery Method Room Air Weight: 297 lb Body Mass Index (BMI) 41.4 Finger Stick Blood Glucose 256 Intake and Output for Last 24 Hours 08/24/18 08/25/18 08/26/18 23:59 23:59 23:59 Intake Total 3300 / 3300 6786 / 6786 2448 / 2448 Output Total 3800 / 3800 1850 / 1850 Balance 3300 / 3300 2986 / 2986 598 / 598 General: Alert, Oriented x3, Cooperative, No apparent distress HEENT: Atraumatic, PERRLA, EOMI Oral: Moist Mucosa Neck: Supple, No JVD, Trachea Midline Lungs: Clear to auscultation, Normal air movement, No rhonchi, No wheeze, No rales Cardiovascular: Regular rate, Regular Rhythm, Normal S1, Normal S2, No murmurs Abdomen: Soft, Non-Distended, No Hepato-splenomegaly, Tender - Mild around incisions Extremities: No edema, Capillary Refill Less than 3 Seconds Skin: No rashes, No breakdown, Incision - CDI Neurological: Neuro grossly intact, Sensory exam intact to light touch and pain Psych/Mental Status: Normal Affect, Appropriate Laboratory Results 08/25/18 05:40: Total Creatine Kinase 1068 H 08/25/18 11:46: POC Glucose 198 H 08/25/18 12:10: Total Creatine Kinase 1166 H 08/25/18 12:10: Troponin I < 0.015 08/25/18 16:11: POC Glucose 167 H 08/25/18 22:19: POC Glucose 193 H 08/26/18 06:42: POC Glucose 137 H 08/26/18 07:10: WBC 5.8, RBC 4.02 L, Hgb 13.0, Hct 38.0 L, MCV 94.5 H, MCH 32.3 H, MCHC 34.2, RDW 14.6, RDW Differential 48.5 H, Plt Count 142 L, MPV 9.4, Immature Gran % (Auto) 0.300, Neut % (Auto) 66.5, Lymph % (Auto) 18.8 L, [place] % (Auto) 11.8 H, Eos % (Auto) 2.1, Baso % (Auto) 0.5, Absolute Neuts (auto) 3.8, Absolute Lymphs (auto) 1.08, Total Counted Not Reportable 08/26/18 07:10: Sodium 137, Potassium 3.7, Chloride 103, Carbon Dioxide 28.0, Anion Gap 6, BUN 8, Creatinine 0.78, Estim Creat Clear Calc 139.44, Est GFR (MDR D) Af Amer 144, Est GFR (MDRD) Non-Af 119, BUN/Creatinine Ratio 10.2, Glucose 140 H, Calcium 7.3 L, Total Creatine Kinase 897 H Medical Necessity - Tobacco Use Smoking Status: Never smoker Tobacco Use: Chew Assessment/Plan All Active Problems Acute cholecystitis (Acute) 1. Sepsis secondary to acute cholecystitis status post lap tristin -Incisions look clean -Pain is controlled -Stable for DC -Sepsis resolved prior to discharge 2. Acute rhabdomyolysis -To be secondary to an abdominal muscle tear secondary to vomiting prior to his admission -Discharge was held yesterday because of rising CPK even though his creatinine was normal -He was maintained on IV fluids at 150 cc/h -CPK is trending down, creatinine is stable. -Stable for discharge 3. DM type II/hypertension/hyperlipidemia/obesity -On discharge he can resume his metformin -Resume lisinopril, and fenofibrate -Had extensive discussions yesterday about lifestyle modifications including diet and exercise 4. Hypothyroidism -Stable -Continue with Synthroid 5. Gout -Had been on Uloric previously though he is not taking due to cost DVT: SCDs Code Visit Inpatient E&M: 63338 Subs Hosp L2
== END 2018-08-26 09:13 | disposition home or self-care (01) ==
LOC: ED 14:04 → SDC 14:10 → AC 14:13 → MS3 15:47 → SDC 17:12 → MS3 08-25 06:14
PROVIDERS: Nurse Practitioner Family; Admitting Provider Surgery; Emergency Provider Emergency Medicine; Referring Provider Surgery; Visit Provider Family Medicine
PROC: (CPT 47610; principal; 2018-08-24 15:10)
DX: K80.12 Calculus of gallbladder with acute and chronic cholecystitis without obstruction (principal); I10 Essential (primary) hypertension; E03.9 Hypothyroidism, unspecified; Z23 Encounter for immunization; Z79.899 Other long term (current) drug therapy; E87.2 Acidosis; I95.9 Hypotension, unspecified; E78.5 Hyperlipidemia, unspecified; M10.9 Gout, unspecified; E11.65 Type 2 diabetes mellitus with hyperglycemia; N17.9 Acute kidney failure, unspecified; E87.5 Hyperkalemia; E66.9 Obesity, unspecified; Z68.41 Body mass index [BMI] 40.0-44.9, adult; Z71.3 Dietary counseling and surveillance; M62.82 Rhabdomyolysis
CPT/HCPCS: 47563; 36415; 71045; 74177; 74300; 76000; 76705; 80048; 80053; 80076; 81001; 82150; 82550; 82962; 83605; 83690; 84484; 85025; 87040; 87086; 88304; 93005; 96361; 96365; 96366; 96375; 96376; 99218; 99284; J7030; Q9967; 90686; A4216; G0378; J2405

== ENCOUNTER → 2018-08-31 08:50 | Outpatient (CLI) | payer OTHER, SELFPAY ==
[2018-08-24 18:36] VITALS: BMI 41.4
[2018-08-31 10:17] LABS: Anion Gap 6 (5-15); BUN 14 mg/dL (7-18); BUN/Creat Ratio 15.1 RATIO (10-20); CPK Total, Creatine Kinase 184 U/L (39-308); Chloride 102 mmol/L (98-107); Creatinine, Serum 0.93 mg/dL (0.70-1.30); EST Glomerular Filtration Rate 98 mL/min (>60); Est Glom Filt Rate - Afr Amer 119 mL/min (>60); Glucose 126 mg/dL (74-106); Sodium Level 138 mmol/L (136-145)
== END ==
PROVIDERS: Family Provider Family Medicine; PCP Family Medicine; Referring Provider Surgery; Visit Provider Surgery
DX: M62.82 Rhabdomyolysis (principal)
CPT/HCPCS: 36415; 80048; 82550